=== PATIENT | female | born 1955 | race Hispanic/Latino ===

== ENCOUNTER 2022-04-08 06:16 | Day surgery (SDC) | payer BC, OTHER ==
[2022-04-05 11:52] LABS: Absolute Lymphocytes (CBC) 2.3 K/uL (0.7-4.9); Hematocrit 39.5 % (36.0-45.0); Lymphocytes % 23.5 % (15.3-44.8); MCV 89.1 fL (80-100); MPV 8.3 fL (7.6-11.3); RBC Red Blood Cell Count 4.43 M/uL (3.86-4.86)
[2022-04-05 12:08] LABS: Potassium 3.8 mmol/L (3.5-5.1)
--- NOTE | 2022-04-05 12:09 | RAD REPORT ---
EXAM DESCRIPTION: RAD - Chest Pa And Lat (2 Views) - 04/05/2022 11:39 am CLINICAL HISTORY: Pre op pending rotator cuff repair COMPARISON: Portable 01/01/2016 TECHNIQUE: Frontal and lateral views of the chest were obtained. FINDINGS: The lungs are clear. Interstitial pattern matches comparison. Numerous surgical clips are seen in the right axilla and along the lateral aspect of the chest the prior breast surgery. Heart size is normal and central vasculature is within normal limits. No pleural effusion or pneumo thorax seen. No acute bony finding noted. No aortic abnormality. IMPRESSION: No acute cardiopulmonary process.
--- NOTE | 2022-04-05 13:54 | EKG ---
Test Date: 2022-04-05 Test Time: 11:11:46 [employer]: LIANG MEASUREMENT RESULTS: Intervals: Rate: 76 TX: 140 QRSD: 88 QT: 378 QTc: 425 [place]: P: 67 TX: 140 QRS: -26 T: 65 INTERPRETIVE STATEMENTS: Normal sinus rhythm Normal ECG Compared to ECG 01/01/2016 11:27:24 No significant changes Electronically Signed On 04-05-22 13:54:21 CDT by Sergo Gomez
[2022-04-08] MEDS ORDERED: CEFAZOLIN SODIUM 1 GM/VIAL ONE (06:23)
[2022-04-08] MEDS ORDERED: NA CHLORIDE 0.9% 1,000 ML ONE ×2 (06:23→09:18)
[2022-04-08] MEDS ORDERED: EPINEPHRINE/PF 1 MG/ML AMP ONE ×2 (07:09→07:13)
[2022-04-08] MEDS ORDERED: dexAMETHasone 10 MG/ML VIAL ONE (07:11)
[2022-04-08] MEDS ORDERED: MIDAZOLAM HCL 2 MG/2 ML INJ ONE (07:11)
[2022-04-08] MEDS ORDERED: FENTANYL CITR 100 MCG/2 ML ONE (07:11)
[2022-04-08] MEDS ORDERED: LIDOCAINE 1% MPF 5 ML VIAL ONE (07:11)
[2022-04-08] MEDS ORDERED: ROPLVACAINE HCL 40 ML ONE (07:12)
[2022-04-08] MEDS ORDERED: KETOROLAC 30 MG/ML INJ ONE (07:55)
[2022-04-08] MEDS ORDERED: ROCURONIUM 50 MG/5 ML VIAL IV ONE (07:55)
[2022-04-08] MEDS ORDERED: ONDANSETRON 4 MG/2 ML VIAL ONE (07:55)
[2022-04-08] MEDS ORDERED: propofoL 200 MG/20 ML VIAL IV ONE (07:55)
[2022-04-08] MEDS ORDERED: LIDOCAINE 2% MPF 5 ML VIAL ONE (07:55)
[2022-04-08] MEDS ORDERED: GLYCOPYRROLATE 0.2 MG/ML SYR ONE (10:21)
[2022-04-08] MEDS ORDERED: NEOSTIGMINE 1 MG/ML -5 ML ONE (10:24)
--- NOTE | 2022-04-08 10:54 | P.BOP ---
Preoperative diagnosis: left rotator cuff tear, biceps tendinitis, impingement syndrome Postoperative diagnosis: same, SLAP tear Primary procedure: left shoulder arthroscopic rotator cuff repair Secondary procedure: left shoulder arthroscopic biceps tenotomy with SLAP debridement Other procedure(s): left shoulder arthroscopic subacromial decompression Estimated blood loss: 5 cc Specimen: none Findings: see dictation Anesthesia: General Complications: None Implants: 1- 5.5 mm Arthex corkscrew, 2- 4.75 mm Arthrex Swivelocks Fluids & blood products: per anesthesia record Transferred to: Recovery Room Condition: Good
--- NOTE | 2022-04-08 11:26 | RAD REPORT ---
EXAM DESCRIPTION: RAD - Shoulder 1 View - 04/08/2022 11:11 am CLINICAL HISTORY: shoulder surgery FINDINGS: Frontal view of the shoulder was obtained. Postsurgical changes involve the right shoulder. Air is present within the tissues. No fracture visualized.
[2022-04-08] MEDS ORDERED: HYDROCODONE/APAP 7.5/325 MG TAB ONE (12:19)
[2022-04-08 14:38] VITALS: BP 136/71; TEMP 96.5; O2SAT 100
== END 2022-04-08 12:32 | disposition home or self-care (01) ==
LOC: OR 06:16
PROVIDERS: ATTEND Orthopaedic Surgery Sports Medicine
PROC: 0LM24ZZ Reattachment of Left Shoulder Tendon, Percutaneous Endoscopic Approach (ICD-10-PCS; 2022-04-08)
PROC: 0RNK4ZZ Release Left Shoulder Joint, Percutaneous Endoscopic Approach (ICD-10-PCS; principal; 2022-04-08 08:00)
DX: M75.102 Unspecified rotator cuff tear or rupture of left shoulder, not specified as traumatic (principal); M75.22 Bicipital tendinitis, left shoulder; M75.42 Impingement syndrome of left shoulder; E11.9 Type 2 diabetes mellitus without complications; I10 Essential (primary) hypertension
CPT/HCPCS: 93005; 85025; 80048; 36415; 85610; 82947 ×2; 85730; 71046; 73020; 29827; 29826; 29822; J2704; J0171 ×2; J2001 ×2; J2250; J3010; J1100; J2795; J2710; J7030 ×2; J2405; J0690

== ENCOUNTER 2023-05-15 16:21 | Emergency (ER) | payer BC, OTHER ==
--- OUTSIDE RECORDS SUMMARY | 2023-05-15 16:27 | XMS REPORT | Continuity of Care Document ---
:1955 Author Organization [facility] t Address [address] [place] [address]. [address] [place] [address] Care Team Providers Name Role Phone KENNA BURNS Primary Care Physician Unavailable Sarika Keyes Attending Clinician Unavailable Kenna Burns Attending Clinician Unavailable [email or web address] Attending Clinician Unavailable DONA Attending Clinician Unavailable ARIAN HYATT Attending Clinician Unavailable Arian Cox Attending Clinician Froylan Melissa MD Attending Clinician FROYLAN MELISSA Attending Clinician Unavailable Jordy Nava DO Attending Clinician Doctor Unassigned, [place] Attending Clinician Unavailable EVA BOWENS Attending Clinician Unavailable [email or web address] Admitting Clinician Unavailable DONA Admitting Clinician Unavailable ARIAN HYATT Admitting Clinician Unavailable Payers Payer Name Policy Type Policy Number Effective Date Expiration Date S ource HUMANA MEDICARE 53 [id number] 2020 Common Sp mark 00:00:[address] - [facility] Cross Blue 6 [id number] 2020 Common Spirit Shield of [place] 00:00:00 - [facility] HUMANA MEDICARE C1 [id number] Common Sp mark - [facility] [place] [id number] 2020 00:00:00 HUMANA CHOICE [id number] 2020 00:00:00 Problems Condition Condition Condition Status Onset Resolution Last Treating Co mments Source Name Details Category Date Date Treatment Clinician Date [id number] Tear of Problem Commo n left [facility], [facility] Center unspecif d whether traumatic [id number] Primary Problem Comm on osteoarthr Spirit itis of - CHI left hip [facility] [id number] Primary Problem Comm on osteoarthr Spirit itis of - CHI left knee [facility] [id number] Other Problem Common specified Spirit diabetes - CHI mellitus [facility] diabetic Medical polyneurop Center athy, without long-term current use of insulin [id number] Current Problem Common moderate Spirit episode of - [facility]I major [facility] disorder Medical without Center prior episode [id number] Asymptomat Problem 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 [facility] extremitie Medica l s Center [id number] Pure Problem Common hyperchole Spirit sterolemia - [facility] [id number] Gastroesop Problem Co mmon hageal Spirit reflux - CHI disease [facility] esophagiti Medica l [facility] [id number] Mixed Problem Common stress and Spirit urge - CHI urinary [facility] Personal History of Problem Com mon history of breast Spirit primary cancer - CHI malignant neoplasm [facility] breast [facility] [id number] Essential Problem Comm on (primary) Spirit hypertensi - CHI on [facility] [id number] Other Problem Common insomnia Spirit - [facility] [id number] Primary Problem Commo n osteoarthr Spirit itis - CHI involving [facility] Abnormal Abnormal Problem Commo n mammogram mammogram Spir it - [facility] [id number] Age-relate Problem Com mon d Spirit osteoporos - CHI is without [facility] pathologic Medica l al Center fracture [id number] Gastroesop Problem Co mmon hageal Spirit reflux - CHI disease St with [facility] esophagiti Medica l s without Center hemorrhage [id number] Arthralgia Problem Com mon of right Spirit knee - [facility] [id number] Internal Problem Com mon [id number] derangemen Spiri t t of right - CHI knee [facility] [id number] Other Problem Common chronic Spirit pain - [facility] [id number] MDD (major Problem Co mmon depressive Spirit disorder), - CHI recurrent St episode, [facility] [id number] Urge Problem Common incontinen Spirit ce - [facility] [id number] Type 2 Problem Common diabetes Spirit mellitus - CHI without St complicati [facility] on, Medical without Center long-term current use of insulin Allergies, Adverse Reactions, Alerts Allergy Allergy Status Severity Reaction(s) Onset Inactive Treating Comm ents Source Name Type Date Date Clinician NO KNOWN Drug Active Univers ALLERGIE Class ity of S [facility] Social History Social Habit Start Date Stop Date Quantity Comments Source History of Tobacco Common Spirit - Use [facility] Sexual orientation Method ist Hospital Exposure to Not sure University of SARS-CoV-2 (event) [facility] Alcohol intake 2021-04-14 2021-04-14 Current University of 00:00:00 00:00:00 non-drinker of [facility] alcohol Branch (finding) Cigarettes smoked 2017-10-27 2017-10-27 Univers ity of current (pack per 00:00:00 00:00:00 ) - Reported Branch Tobacco use and 2017-10-27 2017-10-27 Never used Universit y of exposure 00:00:00 00:00:00 [facility] Sex Ass[birth year] [facility] Smoking Status Start Date Stop Date Source Tobacco smoking [facility] consumption unknown Former Smoker 2022-11-29 00:00:00 2022-11-29 Common Spiri t [facility] 00[facility]00:00 [facility] nter Current Smoker 2022-05-30 00:00:00 Common Spiri t - [facility] nter Medications Ordered Filled Start Stop Current Ordering Indication Dosage Frequency Signature Comments Components Source Medication Medication Date Date Medication? Clinician (SIG) Name Name HYDROcodone HYDROcodone 2021-06 No 1{table QID HYDROcodon -Acetaminop -Acetaminop 1-14 t_as_ne e-Acetamin hen 5-325 hen 5-325 00:00: eded} ophen MG MG 00 5-325 MG HYDROcodone HYDROcodone 2021-06 No 1{table QID HYDROcodon -Acetaminop -Acetaminop 1-14 t_as_ne e-Acetamin hen 5-325 hen 5-325 00:00: eded} ophen MG MG 00 5-325 MG HYDROcodone HYDROcodone 2021-06 No 1{table QID HYDROcodon -Acetaminop -Acetaminop 1-14 t_as_ne e-Acetamin hen 5-325 hen 5-325 00:00: eded} ophen MG MG 00 5-325 MG HYDROcodone HYDROcodone 2021-06 No 1{table QID HYDROcodon -Acetaminop -Acetaminop 1-14 t_as_ne e-Acetamin hen 5-325 hen 5-325 00:00: eded} ophen MG MG 00 5-325 MG HYDROcodone HYDROcodone 2021-06 No 1{table QID HYDROcodon -Acetaminop -Acetaminop 1-14 t_as_ne e-Acetamin hen 5-325 hen 5-325 00:00: eded} ophen MG MG 00 5-325 MG HYDROcodone HYDROcodone 2021-06 No 1{table QID HYDROcodon -Acetaminop -Acetaminop 1-14 t_as_ne e-Acetamin hen 5-325 hen 5-325 00:00: eded} ophen MG MG 00 5-325 MG HYDROcodone HYDROcodone 2021-06 No 1{table QID HYDROcodon -Acetaminop -Acetaminop 1-14 t_as_ne e-Acetamin hen 5-325 hen 5-325 00:00: eded} ophen MG MG 00 5-325 MG HYDROcodone HYDROcodone 2021-06 No 1{table HYDROcodon -Acetaminop -Acetaminop 0-27 t_as_ne e-Acetamin hen 7.5-325 hen 7.5-325 00:00: eded} ophen MG MG 00 7.5-325 MG HYDROcodone HYDROcodone 2021-06 No 1{table HYDROcodon -Acetaminop -Acetaminop 0-27 t_as_ne e-Acetamin hen 7.5-325 hen 7.5-325 00:00: eded} ophen MG MG 00 7.5-325 MG HYDROcodone HYDROcodone 2021-06 No 1{table HYDROcodon -Acetaminop -Acetaminop 0-27 t_as_ne e-Acetamin hen 7.5-325 hen 7.5-325 00:00: eded} ophen MG MG 00 7.5-325 MG HYDROcodone HYDROcodone 2021-06 No 1{table HYDROcodon -Acetaminop -Acetaminop 0-27 t_as_ne e-Acetamin hen 7.5-325 hen 7.5-325 00:00: eded} ophen MG MG 00 7.5-325 MG HYDROcodone HYDROcodone 2021-06 No 1{table HYDROcodon -Acetaminop -Acetaminop 0-27 t_as_ne e-Acetamin hen 7.5-325 hen 7.5-325 00:00: eded} ophen MG MG 00 7.5-325 MG HYDROcodone HYDROcodone 2021-06 No 1{table HYDROcodon -Acetaminop -Acetaminop 0-27 t_as_ne e-Acetamin hen 7.5-325 hen 7.5-325 00:00: eded} ophen MG MG 00 7.5-325 MG HYDROcodone HYDROcodone 2021-06 No 1{table HYDROcodon -Acetaminop -Acetaminop 0-27 t_as_ne e-Acetamin hen 7.5-325 hen 7.5-325 00:00: eded} ophen MG MG 00 7.5-325 MG HYDROcodone HYDROcodone 2021-06 No 1{table HYDROcodon -Acetaminop -Acetaminop 0-27 t_as_ne e-Acetamin hen 7.5-325 hen 7.5-325 00:00: eded} ophen MG MG 00 7.5-325 MG HYDROcodone HYDROcodone 2021-06 No 1{table HYDROcodon -Acetaminop -Acetaminop 0-27 t_as_ne e-Acetamin hen 7.5-325 hen 7.5-325 00:00: eded} ophen MG MG 00 7.5-325 MG HYDROcodone HYDROcodone 2022-1 No 1{table HYDROcodon -Acetaminop -Acetaminop 0-27 t_as_ne e-Acetamin hen 7.5-325 hen 7.5-325 00:00: eded} ophen MG MG 00 7.5-325 MG Sertraline Sertraline 2021-0 No 1{table QD Sertraline HCl 50 MG HCl 50 MG 8-17 t} HCl 50 MG 00:00: 00 Sertraline Sertraline 2021-0 No 1{table QD Sertraline HCl 50 MG HCl 50 MG 8-17 t} HCl 50 MG 00:00: 00 Sertraline Sertraline 2021-0 No 1{table QD Sertraline HCl 50 MG HCl 50 MG 8-17 t} HCl 50 MG 00:00: 00 Sertraline Sertraline 2021-0 No 1{table QD Sertraline HCl 50 MG HCl 50 MG 8-17 t} HCl 50 MG 00:00: 00 Sertraline Sertraline 2-0 No 1{table QD Sertraline HCl 50 MG HCl 50 MG 8-17 t} HCl 50 MG 00:00: 00 Sertraline Sertraline 2-0 No 1{table QD Sertraline HCl 50 MG HCl 50 MG 8-17 t} HCl 50 MG 00:00: 00 Sertraline Sertraline 2-0 No 1{table QD Sertraline HCl 50 MG HCl 50 MG 8-17 t} HCl 50 MG 00:00: 00 Sertraline Sertraline 2-0 No 1{table QD Sertraline HCl 50 MG HCl 50 MG 8-17 t} HCl 50 MG 00:00: 00 Sertraline Sertraline 2-0 No 1{table QD Sertraline HCl 50 MG HCl 50 MG 8-17 t} HCl 50 MG 00:00: 00 Sertraline Sertraline 2-0 No 1{table QD Sertraline HCl 50 MG HCl 50 MG 8-17 t} HCl 50 MG 00:00: 00 Sertraline Sertraline 2-0 No 1{table QD Sertraline HCl 50 MG HCl 50 MG 8-17 t} HCl 50 MG 00:00: 00 Sertraline Sertraline 2-0 No 1{table QD Sertraline HCl 50 MG HCl 50 MG 8-17 t} HCl 50 MG 00:00: 00 Sertraline Sertraline 2022-0 No 1{table QD Sertraline HCl 50 MG HCl 50 MG 8-17 t} HCl 50 MG 00:00: 00 Sertraline Sertraline 2-0 No 1{table QD Sertraline HCl 50 MG HCl 50 MG 8-17 t} HCl 50 MG 00:00: 00 Sertraline Sertraline 2022-0 No 1{table QD Sertraline HCl 50 MG HCl 50 MG 8-17 t} HCl 50 MG 00:00: 00 metFORMIN metFORMIN 2022-0 No 1{table QD metFORMIN HCl 1000 MG HCl 1000 MG 5-18 t_with_ HCl 1000 00:00: a_meal} MG 00 metFORMIN metFORMIN 2022-0 No 1{table QD metFORMIN HCl 1000 MG HCl 1000 MG 5-18 t_with_ HCl 1000 00:00: a_meal} MG 00 metFORMIN metFORMIN 2-0 No 1{table QD metFORMIN HCl 1000 MG HCl 1000 MG 5-18 t_with_ HCl 1000 00:00: a_meal} MG 00 metFORMIN metFORMIN 2022-0 No 1{table QD metFORMIN HCl 1000 MG HCl 1000 MG 5-18 t_with_ HCl 1000 00:00: a_meal} MG 00 metFORMIN metFORMIN 2022-0 No 1{table QD metFORMIN HCl 1000 MG HCl 1000 MG 5-18 t_with_ HCl 1000 00:00: a_meal} MG 00 metFORMIN metFORMIN 2022-0 No 1{table QD metFORMIN HCl 1000 MG HCl 1000 MG 5-18 t_with_ HCl 1000 00:00: a_meal} MG 00 metFORMIN metFORMIN 2022-0 No 1{table QD metFORMIN HCl 1000 MG HCl 1000 MG 5-18 t_with_ HCl 1000 00:00: a_meal} MG 00 metFORMIN metFORMIN 2022-0 No 1{table QD metFORMIN HCl 1000 MG HCl 1000 MG 5-18 t_with_ HCl 1000 00:00: a_meal} MG 00 metFORMIN metFORMIN 2022-0 No 1{table QD metFORMIN HCl 1000 MG HCl 1000 MG 5-18 t_with_ HCl 1000 00:00: a_meal} MG 00 metFORMIN metFORMIN 2022-0 No 1{table QD metFORMIN HCl 1000 MG HCl 1000 MG 5-18 t_with_ HCl 1000 00:00: a_meal} MG 00 metFORMIN metFORMIN 2022-0 No 1{table QD metFORMIN HCl 1000 MG HCl 1000 MG 5-18 t_with_ HCl 1000 00:00: a_meal} MG 00 metFORMIN metFORMIN 2022-0 No 1{table QD metFORMIN HCl 1000 MG HCl 1000 MG 5-18 t_with_ HCl 1000 00:00: a_meal} MG 00 metFORMIN metFORMIN 2022-0 No 1{table QD metFORMIN HCl 1000 MG HCl 1000 MG 5-18 t_with_ HCl 1000 00:00: a_meal} MG 00 metFORMIN metFORMIN 2-0 No 1{table QD metFORMIN HCl 1000 MG HCl 1000 MG 5-18 t_with_ HCl 1000 00:00: a_meal} MG 00 metFORMIN metFORMIN 2-0 No 1{table QD metFORMIN HCl 1000 MG HCl 1000 MG 5-18 t_with_ HCl 1000 00:00: a_meal} MG 00 metFORMIN metFORMIN 2-0 No 1{table QD metFORMIN HCl 1000 MG HCl 1000 MG 5-18 t_with_ HCl 1000 00:00: a_meal} MG 00 metFORMIN metFORMIN 2-0 No 1{table QD metFORMIN HCl 1000 MG HCl 1000 MG 5-18 t_with_ HCl 1000 00:00: a_meal} MG 00 metFORMIN metFORMIN 2-0 No 1{table QD metFORMIN HCl 1000 MG HCl 1000 MG 5-18 t_with_ HCl 1000 00:00: a_meal} MG 00 metFORMIN metFORMIN 2022-0 No 1{table QD metFORMIN HCl 1000 MG HCl 1000 MG 5-18 t_with_ HCl 1000 00:00: a_meal} MG 00 metFORMIN metFORMIN 2-0 No 1{table QD metFORMIN HCl 1000 MG HCl 1000 MG 5-18 t_with_ HCl 1000 00:00: a_meal} MG 00 predniSONE predniSONE 2-0 No 2{table QD predniSONE 20 MG 20 MG 4-27 t} 20 MG 00:00: 00 Toradol Toradol 2021-0 No 30mg Common (Ketorolac) (Ketorolac) 4-27 S pirit 00:00: - CHI 00 [facility] Kenalog Kenalog 2021-0 No 40mg Common (Triamcinol (Triamcinol 4-27 S pirit one) one) 00:00: - CHI 00 [facility] Toradol Toradol 2021-0 No 30mg Common (Ketorolac) (Ketorolac) 4-27 S pirit 00:00: - CHI 00 [facility] Kenalog Kenalog 2021-0 No 40mg Common (Triamcinol (Triamcinol 4-27 S pirit one) one) 00:00: - CHI 00 [facility] Toradol Toradol 2021-0 No 30mg Common (Ketorolac) (Ketorolac) 4-27 S pirit 00:00: - CHI 00 [facility] Kenalog Kenalog 2021-0 No 40mg Common (Triamcinol (Triamcinol 4-27 S pirit one) one) 00:00: - CHI 00 [facility] Toradol Toradol 2021-0 No 30mg Common (Ketorolac) (Ketorolac) 4-27 S pirit 00:00: - CHI 00 [facility] Kenalog Kenalog 2021-0 No 40mg Common (Triamcinol (Triamcinol 4-27 S pirit one) one) 00:00: - CHI 00 [facility] Toradol Toradol 2021-0 No 30mg Common (Ketorolac) (Ketorolac) 4-27 S pirit 00:00: - CHI 00 [facility] Kenalog Kenalog 2021-0 No 40mg Common (Triamcinol (Triamcinol 4-27 S pirit one) one) 00:00: - CHI 00 [facility] Toradol Toradol 2021-0 No 30mg Common (Ketorolac) (Ketorolac) 4-27 S pirit 00:00: - [facility] Kenalog Kenalog 2021-0 No 40mg Common (Triamcinol (Triamcinol 4-27 S pirit one) one) 00:00: - CHI 00 [facility] Toradol Toradol 2021-0 No 30mg Common (Ketorolac) (Ketorolac) 4-27 S pirit 00:00: - CHI 00 [facility] Kenalog Kenalog 2021-0 No 40mg Common (Triamcinol (Triamcinol 4-27 S pirit one) one) 00:00: - [facility] Toradol Toradol 2021-0 No 30mg Common (Ketorolac) (Ketorolac) 4-27 S pirit 00:00: - CHI 00 [facility] Kenalog Kenalog 2021-0 No 40mg Common (Triamcinol (Triamcinol 4-27 S pirit one) one) 00:00: - CHI 00 [facility] Toradol Toradol 2021-0 No 30mg Common (Ketorolac) (Ketorolac) 4-27 S pirit 00:00: - CHI 00 [facility] Kenalog Kenalog 2021-0 No 40mg Common (Triamcinol (Triamcinol 4-27 S pirit one) one) 00:00: - CHI 00 [facility] Toradol Toradol 2021-0 No 30mg Common (Ketorolac) (Ketorolac) 4-27 S pirit 00:00: - CHI 00 [facility] Johanna Kenalog 2021-0 No 40mg Common (Triamcinol (Triamcinol 4-27 S pirit one) one) 00:00: - CHI 00 [facility] Toradol Toradol 2021-0 No 30mg Common (Ketorolac) (Ketorolac) 4-27 S pirit 00:00: - CHI 00 [facility] Kencody Kenalog 2021-0 No 40mg Common (Triamcinol (Triamcinol 4-27 S pirit one) one) 00:00: - CHI 00 [facility] Toradol Toradol 2021-0 No 30mg Common (Ketorolac) (Ketorolac) 4-27 S pirit 00:00: - CHI 00 [facility] Kenalog Kenalog 2021-0 No 40mg Common (Triamcinol (Triamcinol 4-27 S pirit one) one) 00:00: - CHI 00 [facility] Toradol Toradol 2021-0 No 30mg Common (Ketorolac) (Ketorolac) 4-27 S pirit 00:00: - CHI 00 [facility] Kenalog Kenalog 2021-0 No 40mg Common (Triamcinol (Triamcinol 4-27 S pirit one) one) 00:00: - CHI 00 [facility] Toradol Toradol 2021-0 No 30mg Common (Ketorolac) (Ketorolac) 4-27 S pirit 00:00: - CHI 00 [facility] Kenalog Kenalog 2021-0 No 40mg Common (Triamcinol (Triamcinol 4-27 S pirit one) one) 00:00: - CHI 00 [facility] Toradol Toradol 2021-0 No 30mg Common (Ketorolac) (Ketorolac) 4-27 S pirit 00:00: - CHI 00 [facility] Kenalog Kenalog 2021-0 No 40mg Common (Triamcinol (Triamcinol 4-27 S pirit one) one) 00:00: - CHI 00 [facility] Toradol Toradol 2021-0 No 30mg Common (Ketorolac) (Ketorolac) 4-27 S pirit 00:00: - CHI 00 [facility] Johanna Kenalog 2021-0 No 40mg Common (Triamcinol (Triamcinol 4-27 S pirit one) one) 00:00: - CHI 00 [facility] Toradol Toradol 2021-0 No 30mg Common (Ketorolac) (Ketorolac) 4-27 S pirit 00:00: - CHI 00 [facility] Kenalog Kenalog 2021-0 No 40mg Common (Triamcinol (Triamcinol 4-27 S pirit one) one) 00:00: - CHI 00 [facility] Toradol Toradol 2021-0 No 30mg Common (Ketorolac) (Ketorolac) 4-27 S pirit 00:00: - CHI 00 [facility] Kenalog Kenalog 2021-0 No 40mg Common (Triamcinol (Triamcinol 4-27 S pirit one) one) 00:00: - CHI 00 [facility] Toradol Toradol 2021-0 No 30mg Common (Ketorolac) (Ketorolac) 4-27 S pirit 00:00: - CHI 00 [facility] Kenalog Kenalog 2021-0 No 40mg Common (Triamcinol (Triamcinol 4-27 S pirit one) one) 00:00: - CHI 00 [facility] Toradol Toradol 2021-0 No 30mg Common (Ketorolac) (Ketorolac) 4-27 S pirit 00:00: - CHI 00 [facility] Kenalog Kenalog 2021-0 No 40mg Common (Triamcinol (Triamcinol 4-27 S pirit one) one) 00:00: - CHI 00 [facility] Toradol Toradol 2021-0 No 30mg Common (Ketorolac) (Ketorolac) 4-27 S pirit 00:00: - CHI 00 [facility] Kenalog Kenalog 2021-0 No 40mg Common (Triamcinol (Triamcinol 4-27 S pirit one) one) 00:00: - CHI 00 [facility] Toradol Toradol 2021-0 No 30mg Common (Ketorolac) (Ketorolac) 4-27 S pirit 00:00: - CHI 00 [facility] Johanna Kenalog 2021-0 No 40mg Common (Triamcinol (Triamcinol 4-27 S pirit one) one) 00:00: - CHI 00 [facility] Toradol Toradol 2021-0 No 30mg Common (Ketorolac) (Ketorolac) 4-27 S pirit 00:00: - CHI 00 [facility] Johanna Kenalog 2021-0 No 40mg Common (Triamcinol (Triamcinol 4-27 S pirit one) one) 00:00: - CHI 00 [facility] Toradol Toradol 2021-0 No 30mg Common (Ketorolac) (Ketorolac) 4-27 S pirit 00:00: - CHI 00 [facility] Kenalog Kenalog 2021-0 No 40mg Common (Triamcinol (Triamcinol 4-27 S pirit one) one) 00:00: - CHI 00 [facility] Toradol Toradol 2021-0 No 30mg Common (Ketorolac) (Ketorolac) 4-27 S pirit 00:00: - CHI 00 [facility] Kenalog Kenalog 2021-0 No 40mg Common (Triamcinol (Triamcinol 4-27 S pirit one) one) 00:00: - CHI 00 [facility] Toradol Toradol 2021-0 No 30mg Common (Ketorolac) (Ketorolac) 4-27 S pirit 00:00: - CHI 00 [facility] Kenalog Kenalog 2021-0 No 40mg Common (Triamcinol (Triamcinol 4-27 S pirit one) one) 00:00: - CHI 00 [facility] Toradol Toradol 2021-0 No 30mg Common (Ketorolac) (Ketorolac) 4-27 S pirit 00:00: - CHI 00 [facility] Kenalog Kenalog 2021-0 No 40mg Common (Triamcinol (Triamcinol 4-27 S pirit one) one) 00:00: - CHI 00 [facility] Toradol Toradol 2021-0 No 30mg Common (Ketorolac) (Ketorolac) 4-27 S pirit 00:00: - CHI 00 [facility] Alexisalog Kenalog 2021-0 No 40mg Common (Triamcinol (Triamcinol 4-27 S pirit one) one) 00:00: - CHI 00 [facility] Sertraline Sertraline 0 No 1{table QD Sertraline HCl 50 MG HCl 50 MG 2-11 t} HCl 50 MG 00:00: 00 Sertraline Sertraline 0 No 1{table QD Sertraline HCl 50 MG HCl 50 MG 2-11 t} HCl 50 MG 00:00: 00 Myrbetriq Myrbetriq 2020-06- No 1{table QD Myrbetriq 25 MG 25 MG 2-21 01-20 t} 25 MG 00:00: 00:00 00 :00 hydroCHLORO 2020-06- No 12.5mg Take 12.5 Univers thiazide 06-14 mg by ity of 12.5 mg 12:03: 00:00 mouth [place] capsule 46 :00 daily. Medical Branch lisinopril 2020-06- No 20mg Take 20 mg Univers 20 mg 06-14 by mouth ity of tablet 12:03: 00:00 daily. [place] 46 :00 [facility] Branch SERTraline 2020-06- No 50mg Take 50 mg Univers 50 mg 06-14 by mouth ity of tablet 12:03: 00:00 daily. [place] 46 :00 Medical Branch letrozole 2020-06- No 2.5mg Take 2.5 Un jam 2.5 mg 06-14 mg by ity of tablet 12:03: 00:00 mouth [place] 46 :00 daily. Medical Branch anastrozole 2020-06- No 1mg Take 1 mg Univers 1 mg tablet 06-14 by mouth ity of 12:03: 00:00 daily. [place] 46 :00 Medical Branch gabapentin 2020-06- No 600mg Take 600 U nivers 600 mg 06-14 mg by ity of tablet 12:03: 00:00 mouth 3 [place] 46 :00 (three) Medical times Branch daily. acetaminoph 2020-06 Yes [id number] 1{tbl} Take 1 Un jam en-codeine 06-14 tablet by ity of 300-30 mg 00:00: mouth [place] tablet 00 every 4 Medical (four) Branch hours as needed for Pain (scale 4-6). Indication s: acute pain lidocaine 5 2020-06 Yes [id number] Apply Univers % (700 06-14 9104 patch to ity of mg/patch) 00:00: the [place] patch 00 affected Medical area for Branch up to 12 hours per day. May use 1 patch per day. May cut patch to size lidocaine 5 2020-06- No [id number] Apply Univers % (700 06-14 9104 patch to ity of mg/patch) 00:00: 00:00 the area [place] patch 00 :00 of pain Medical and use Branch for up to 12 hours per day. May cut patch to size. acetaminoph 2020-06- No [id number] 1{tbl} Take 1 U nivers en-codeine 06-14 tablet by ity of 300-30 mg 00:00: 00:00 mouth [place] tablet 00 :00 every 4 Medical (four) Branch hours as needed for Pain (scale 4-6). Indication s: acute pain diclofenac 2020-0 Yes 75mg Take 1 Unive rs 75 mg EC 2-04 tablet by ity of tablet 00:00: mouth 2 [place] 00 (two) Medical times Branch daily with meals. diclofenac 2020-0 Yes 75mg Take 1 Unive rs 75 mg EC 2-04 tablet by ity of tablet 00:00: mouth 2 [place] (two) Medical times Branch daily with meals. diclofenac 2020-0 Yes 75mg Take 1 Unive rs 75 mg EC 2-04 tablet by ity of tablet 00:00: mouth 2 [place] (two) Medical times Branch daily with meals. diclofenac 2021-0 Yes 75mg Take 1 Unive rs 75 mg EC 2-04 tablet by ity of tablet 00:00: mouth 2 [place] (two) Medical times Branch daily with meals. diclofenac 1-0 Yes 75mg Take 1 Unive rs 75 mg EC 2-04 tablet by ity of tablet 00:00: mouth 2 [place] (two) Medical times Branch daily with meals. diclofenac 2020-0 Yes 75mg Take 1 Unive rs 75 mg EC 2-04 tablet by ity of tablet 00:00: mouth [place] (two) Medical times Branch daily with meals. diclofenac 2020-0 Yes 75mg Take 1 Unive rs 75 mg EC 2-04 tablet by ity of tablet 00:00: mouth [place] (two) Medical times Branch daily with meals. diclofenac 2020-0 Yes 75mg Take 1 Unive rs 75 mg EC 2-04 tablet by ity of tablet 00:00: mouth [place] (two) Medical times Branch daily with meals. diclofenac 2020-0 202- No 75mg Take 1 Univ ers 75 mg EC 2-04 11-03 tablet by ity o f tablet 00:00: 00:00 mouth 2 [place] 00 :00 (two) Medical times Branch daily with meals. Omeprazole Omeprazole 2019-06 No QD Omeprazole 40 MG 40 MG 2-17 40 MG 00:00: 00 Omeprazole Omeprazole 2019-06 No QD Omeprazole 40 MG 40 MG 2-17 40 MG 00:00: 00 anastrozole 2017- Yes 1mg Take 1 mg U nivers 1 mg tablet 8-24 by mouth ity of 15:50: daily. [place] [address] Medical Branch gabapentin 2017-0 Yes 600mg Take 600 Un jam 600 mg 8-24 mg by ity of tablet 15:50: mouth 3 [place] 50 (three) Medical times Branch daily. ranitidine 2017-0 Yes 150mg Take 150 Un jam 150 mg 8-24 mg by ity of tablet 15:50: mouth 2 [place] [address] (two) Medical times Branch daily. aspirin 81 2018-0 Yes 81mg Take 81 mg U nivers mg chewable 8-24 by mouth ity of tablet 15:50: daily. [place] [address] [facility] metFORMIN 2018-0 Yes 500mg Take 500 Uni vers 500 mg 8-24 mg by ity of tablet 15:50: mouth 2 [place] [address] (two) Medical times Branch daily with meals. simvastatin 2018-0 Yes 40mg Take 40 mg [facility] 40 mg 8-24 by mouth ity of tablet 15:50: at [place] [address] bedtime. Medical Branch hydroCHLORO 2018-0 Yes 12.5mg Take 12.5 [facility] thiazide 8-24 mg by ity of 12.5 mg 15:50: mouth [place] capsule 50 daily. Medical Branch ERGOCALCIFE 2018-0 Yes Take by Uni vers ROL, 8-24 mouth. ity of VITAMIN D2, 15:50: [place] (VITAMIN D Medical ORAL) Branch Zinc 50 mg 2017-0 Yes Take by Univ ers Tab 8-24 mouth. ity of 15:50: [address] lisinopril 2017-0 Yes 20mg Take 20 mg U nivers 20 mg 8-24 by mouth ity of tablet 15:50: daily. [address] Branch SERTraline 2018-0 Yes 50mg Take 50 mg U nivers 50 mg 8-24 by mouth ity of tablet 15:50: daily. [address] Branch letrozole 2017-0 Yes 2.5mg Take 2.5 Uni vers 2.5 mg 8-24 mg by ity of tablet 15:50: mouth [place] 50 daily. Medical Branch anastrozole 2018-0 Yes 1mg Take 1 mg U nivers 1 mg tablet 8-24 by mouth ity of 15:50: daily. [address] Branch gabapentin 2018-0 Yes 600mg Take 600 Un jam 600 mg 8-24 mg by ity of tablet 15:50: mouth 3 [place] [address] (three) Medical times Branch daily. ranitidine 2018-0 Yes 150mg Take 150 Un jam 150 mg 8-24 mg by ity of tablet 15:50: mouth 2 [place] [address] (two) Medical times Branch daily. aspirin 81 2018-0 Yes 81mg Take 81 mg U nivers mg chewable 8-24 by mouth ity of tablet 15:50: daily. [address] metFORMIN 2018-0 Yes 500mg Take 500 Uni vers 500 mg 8-24 mg by ity of tablet 15:50: mouth 2 [place] [address] (two) Medical times Branch daily with meals. simvastatin 2018-0 Yes 40mg Take 40 mg [facility] 40 mg 8-24 by mouth ity of tablet 15:50: at [place] [address] bedtime. Medical Branch hydroCHLORO 2018-0 Yes 12.5mg Take 12.5 [facility] thiazide 8-24 mg by ity of 12.5 mg 15:50: mouth [place] capsule 50 daily. Medical Branch ERGOCALCIFE 2018-0 Yes Take by Uni vers ROL, 8-24 mouth. ity of VITAMIN D2, 15:50: [place] (VITAMIN D Medical ORAL) Branch Zinc 50 mg 2017-0 Yes Take by Univ ers Tab 8-24 mouth. ity of 15:50: [place] [address] Medical Branch lisinopril 2017-0 Yes 20mg Take 20 mg U nivers 20 mg 8-24 by mouth ity of tablet 15:50: daily. [place] [address] Medical Branch SERTraline 2017-0 Yes 50mg Take 50 mg U nivers 50 mg 8-24 by mouth ity of tablet 15:50: daily. [place] [address] Medical Branch letrozole 2017-0 Yes 2.5mg Take 2.5 Uni vers 2.5 mg 8-24 mg by ity of tablet 15:50: mouth [place] 50 daily. Medical Branch anastrozole 2017-0 Yes 1mg Take 1 mg U nivers 1 mg tablet 8-24 by mouth ity of 15:50: daily. [place] [address] Medical Branch gabapentin 2018-0 Yes 600mg Take 600 Un jam 600 mg 8-24 mg by ity of tablet 15:50: mouth 3 [place] [address] (three) Medical times Branch daily. ranitidine 2018-0 Yes 150mg Take 150 Un jam 150 mg 8-24 mg by ity of tablet 15:50: mouth 2 [place] [address] (two) Medical times Branch daily. aspirin 81 2018-0 Yes 81mg Take 81 mg U nivers mg chewable 8-24 by mouth ity of tablet 15:50: daily. [place] [address] Medical Branch metFORMIN 2018-0 Yes 500mg Take 500 Uni vers 500 mg 8-24 mg by ity of tablet 15:50: mouth 2 [place] [address] (two) Medical times Branch daily with meals. simvastatin 2018-0 Yes 40mg Take 40 mg [facility] 40 mg 8-24 by mouth ity of tablet 15:50: at [place] [address] bedtime. Medical Branch hydroCHLORO 2017-0 Yes 12.5mg Take 12.5 [facility] thiazide 8-24 mg by ity of 12.5 mg 15:50: mouth [place] capsule 50 daily. Medical Branch ERGOCALCIFE 2017-0 Yes Take by Uni vers ROL, 8-24 mouth. ity of VITAMIN D2, 15:50: [place] (VITAMIN D Medical ORAL) Branch Zinc 50 mg 2017-0 Yes Take by Univ ers Tab 8-24 mouth. ity of 15:50: [place] [address] Medical Branch lisinopril 2017-0 Yes 20mg Take 20 mg U nivers 20 mg 8-24 by mouth ity of tablet 15:50: daily. [place] [address] Medical Branch SERTraline 2017-0 Yes 50mg Take 50 mg U nivers 50 mg 8-24 by mouth ity of tablet 15:50: daily. [place] [address] Medical Branch letrozole 2017-0 Yes 2.5mg Take 2.5 Uni vers 2.5 mg 8-24 mg by ity of tablet 15:50: mouth [place] 50 daily. Medical Branch anastrozole 0 Yes 1mg Take 1 mg U nivers 1 mg tablet 8-24 by mouth ity of 15:50: daily. [place] [address] Medical Branch gabapentin 2017-0 Yes 600mg Take 600 Un jam 600 mg 8-24 mg by ity of tablet 15:50: mouth 3 [place] [address] (three) Medical times Branch daily. ranitidine 2017-0 Yes 150mg Take 150 Un jam 150 mg 8-24 mg by ity of tablet 15:50: mouth 2 [place] [address] (two) Medical times Branch daily. aspirin 81 2017-0 Yes 81mg Take 81 mg U nivers mg chewable 8-24 by mouth ity of tablet 15:50: daily. [place] [address] Medical Branch metFORMIN 2017-0 Yes 500mg Take 500 Uni vers 500 mg 8-24 mg by ity of tablet 15:50: mouth 2 [place] 50 (two) Medical times Branch daily with meals. simvastatin 2018-0 Yes 40mg Take 40 mg [facility] 40 mg 8-24 by mouth ity of tablet 15:50: at [place] [address] bedtime. Medical Branch hydroCHLORO 2017-0 Yes 12.5mg Take 12.5 [facility] thiazide 8-24 mg by ity of 12.5 mg 15:50: mouth [place] capsule 50 daily. Medical Branch ERGOCALCIFE 2017-0 Yes Take by Uni vers ROL, 8-24 mouth. ity of VITAMIN D2, 15:50: [place] (VITAMIN D 50 Medical ORAL) Branch Zinc 50 mg 2017-0 Yes Take by Univ ers Tab 8-24 mouth. ity of 15:50: [place] [address] Medical Branch lisinopril 2017-0 Yes 20mg Take 20 mg U nivers 20 mg 8-24 by mouth ity of tablet 15:50: daily. [address] Branch SERTraline 2017-0 Yes 50mg Take 50 mg U nivers 50 mg 8-24 by mouth ity of tablet 15:50: daily. [place] [address] Medical Branch letrozole 2017-0 Yes 2.5mg Take 2.5 Uni vers 2.5 mg 8-24 mg by ity of tablet 15:50: mouth [place] 50 daily. Medical Branch anastrozole 2017-0 Yes 1mg Take 1 mg U nivers 1 mg tablet 8-24 by mouth ity of 15:50: daily. [place] [address] Medical Branch gabapentin 2017-0 Yes 600mg Take 600 Un jam 600 mg 8-24 mg by ity of tablet 15:50: mouth 3 [place] [address] (three) Medical times Branch daily. ranitidine 0 Yes 150mg Take 150 Un jam 150 mg 8-24 mg by ity of tablet 15:50: mouth 2 [place] [address] (two) Medical times Branch daily. aspirin 81 2017-0 Yes 81mg Take 81 mg U nivers mg chewable 8-24 by mouth ity of tablet 15:50: daily. [place] [address] Medical Branch metFORMIN 2017-0 Yes 500mg Take 500 Uni vers 500 mg 8-24 mg by ity of tablet 15:50: mouth 2 [place] [address] (two) Medical times Branch daily with meals. simvastatin 2017-0 Yes 40mg Take 40 mg [facility] 40 mg 8-24 by mouth ity of tablet 15:50: at [place] [address] bedtime. Medical Branch hydroCHLORO 2018-0 Yes 12.5mg Take 12.5 [facility] thiazide 8-24 mg by ity of 12.5 mg 15:50: mouth [place] capsule 50 daily. Medical Branch ERGOCALCIFE 2017-0 Yes Take by Uni vers ROL, 8-24 mouth. ity of VITAMIN D2, 15:50: [place] (VITAMIN D 50 Medical ORAL) Branch Zinc 50 mg 2017-0 Yes Take by Univ ers Tab 8-24 mouth. ity of 15:50: [address] lisinopril 2017-0 Yes 20mg Take 20 mg U nivers 20 mg 8-24 by mouth ity of tablet 15:50: daily. [place] [address] Medical Branch SERTraline 2018-0 Yes 50mg Take 50 mg U nivers 50 mg 8-24 by mouth ity of tablet 15:50: daily. [place] [address] Medical Branch letrozole 2018-0 Yes 2.5mg Take 2.5 Uni vers 2.5 mg 8-24 mg by ity of tablet 15:50: mouth [place] 50 daily. Medical Branch anastrozole 2018-0 Yes 1mg Take 1 mg U nivers 1 mg tablet 8-24 by mouth ity of 15:50: daily. [place] [address] Medical Branch gabapentin 2018-0 Yes 600mg Take 600 Un jam 600 mg 8-24 mg by ity of tablet 15:50: mouth 3 [place] [address] (three) Medical times Branch daily. ranitidine 2018-0 Yes 150mg Take 150 Un jam 150 mg 8-24 mg by ity of tablet 15:50: mouth 2 [place] [address] (two) Medical times Branch daily. aspirin 81 2018-0 Yes 81mg Take 81 mg U nivers mg chewable 8-24 by mouth ity of tablet 15:50: daily. [place] [address] Medical Branch metFORMIN 2018-0 Yes 500mg Take 500 Uni vers 500 mg 8-24 mg by ity of tablet 15:50: mouth 2 [place] [address] (two) Medical times Branch daily with meals. simvastatin 2018-0 Yes 40mg Take 40 mg [facility] 40 mg 8-24 by mouth ity of tablet 15:50: at [place] [address] bedtime. Medical Branch hydroCHLORO 2018-0 Yes 12.5mg Take 12.5 [facility] thiazide 8-24 mg by ity of 12.5 mg 15:50: mouth [place] capsule 50 daily. Medical Branch ERGOCALCIFE 2018-0 Yes Take by Uni vers ROL, 8-24 mouth. ity of VITAMIN D2, 15:50: [place] (VITAMIN D 50 Medical ORAL) Branch Zinc 50 mg 2018-0 Yes Take by Univ ers Tab 8-24 mouth. ity of 15:50: [place] [address] Medical Branch lisinopril 2018-0 Yes 20mg Take 20 mg U nivers 20 mg 8-24 by mouth ity of tablet 15:50: daily. [address] SERTraline 2018-0 Yes 50mg Take 50 mg U nivers 50 mg 8-24 by mouth ity of tablet 15:50: daily. [address] Branch letrozole 2018-0 Yes 2.5mg Take 2.5 Uni vers 2.5 mg 8-24 mg by ity of tablet 15:50: mouth [place] 50 daily. Medical Branch anastrozole 2018-0 Yes 1mg Take 1 mg U nivers 1 mg tablet 8-24 by mouth ity of 15:50: daily. [place] [address] Medical Branch gabapentin 2018-0 Yes 600mg Take 600 Un jam 600 mg 8-24 mg by ity of tablet 15:50: mouth 3 [place] [address] (three) Medical times Branch daily. ranitidine 2018-0 Yes 150mg Take 150 Un jam 150 mg 8-24 mg by ity of tablet 15:50: mouth 2 [place] 50 (two) Medical times Branch daily. aspirin 81 2018-0 Yes 81mg Take 81 mg U nivers mg chewable 8-24 by mouth ity of tablet 15:50: daily. [address] metFORMIN 2017-0 Yes 500mg Take 500 Uni vers 500 mg 8-24 mg by ity of tablet 15:50: mouth 2 [place] [address] (two) Medical times Branch daily with meals. simvastatin 2018-0 Yes 40mg Take 40 mg [facility] 40 mg 8-24 by mouth ity of tablet 15:50: at [place] [address] bedtime. Medical Branch hydroCHLORO 2017-0 Yes 12.5mg Take 12.5 [facility] thiazide 8-24 mg by ity of 12.5 mg 15:50: mouth [place] capsule 50 daily. Medical Branch ERGOCALCIFE 2017-0 Yes Take by Uni vers ROL, 8-24 mouth. ity of VITAMIN D2, 15:50: [place] (VITAMIN D 50 Medical ORAL) Branch Zinc 50 mg 2017-0 Yes Take by Univ ers Tab 8-24 mouth. ity of 15:50: [address] lisinopril 2017-0 Yes 20mg Take 20 mg U nivers 20 mg 8-24 by mouth ity of tablet 15:50: daily. [address] Branch SERTraline 2018-0 Yes 50mg Take 50 mg U nivers 50 mg 8-24 by mouth ity of tablet 15:50: daily. [address] letrozole 2017-0 Yes 2.5mg Take 2.5 Uni vers 2.5 mg 8-24 mg by ity of tablet 15:50: mouth [place] 50 daily. Medical Branch anastrozole 2018-0 Yes 1mg Take 1 mg U nivers 1 mg tablet 8-24 by mouth ity of 15:50: daily. [place] [address] Medical Branch gabapentin 2018-0 Yes 600mg Take 600 Un jam 600 mg 8-24 mg by ity of tablet 15:50: mouth 3 [place] [address] (three) Medical times Branch daily. ranitidine 2018-0 Yes 150mg Take 150 Un jam 150 mg 8-24 mg by ity of tablet 15:50: mouth 2 [place] [address] (two) Medical times Branch daily. aspirin 81 2018-0 Yes 81mg Take 81 mg U nivers mg chewable 8-24 by mouth ity of tablet 15:50: daily. [place] [address] Medical Branch metFORMIN 2018-0 Yes 500mg Take 500 Uni vers 500 mg 8-24 mg by ity of tablet 15:50: mouth 2 [place] [address] (two) Medical times Branch daily with meals. simvastatin 2018-0 Yes 40mg Take 40 mg [facility] 40 mg 8-24 by mouth ity of tablet 15:50: at [place] [address] bedtime. Medical Branch hydroCHLORO 2018-0 Yes 12.5mg Take 12.5 [facility] thiazide 8-24 mg by ity of 12.5 mg 15:50: mouth [place] capsule 50 daily. Medical Branch ERGOCALCIFE 2018-0 Yes Take by Uni vers ROL, 8-24 mouth. ity of VITAMIN D2, 15:50: [place] (VITAMIN D Medical ORAL) Branch Zinc 50 mg 2017-0 Yes Take by Univ ers Tab 8-24 mouth. ity of 15:50: [place] [address] Medical Branch lisinopril 2018-0 Yes 20mg Take 20 mg U nivers 20 mg 8-24 by mouth ity of tablet 15:50: daily. [place] [address] Medical Branch SERTraline 2018-0 Yes 50mg Take 50 mg U nivers 50 mg 8-24 by mouth ity of tablet 15:50: daily. [place] [address] Medical Branch letrozole 2018-0 Yes 2.5mg Take 2.5 Uni vers 2.5 mg 8-24 mg by ity of tablet 15:50: mouth [place] 50 daily. Medical Branch anastrozole 2018-0 Yes 1mg Take 1 mg U nivers 1 mg tablet 8-24 by mouth ity of 15:50: daily. [place] [address] Medical Branch gabapentin 2018-0 Yes 600mg Take 600 Un jam 600 mg 8-24 mg by ity of tablet 15:50: mouth 3 [place] [address] (three) Medical times Branch daily. ranitidine 2018-0 Yes 150mg Take 150 Un jam 150 mg 8-24 mg by ity of tablet 15:50: mouth 2 [place] [address] (two) Medical times Branch daily. aspirin 81 2018-0 Yes 81mg Take 81 mg U nivers mg chewable 8-24 by mouth ity of tablet 15:50: daily. [place] [address] Medical Branch metFORMIN 2018-0 Yes 500mg Take 500 Uni vers 500 mg 8-24 mg by ity of tablet 15:50: mouth 2 [place] [address] (two) Medical times Branch daily with meals. simvastatin 2018-0 Yes 40mg Take 40 mg [facility] 40 mg 8-24 by mouth ity of tablet 15:50: at [place] [address] bedtime. Medical Branch hydroCHLORO 2018-0 Yes 12.5mg Take 12.5 [facility] thiazide 8-24 mg by ity of 12.5 mg 15:50: mouth [place] capsule 50 daily. Medical Branch ERGOCALCIFE 2018-0 Yes Take by Uni vers ROL, 8-24 mouth. ity of VITAMIN D2, 15:50: [place] (VITAMIN D Medical ORAL) Branch Zinc 50 mg 2017-0 Yes Take by Univ ers Tab 8-24 mouth. ity of 15:50: [place] [address] Medical Branch lisinopril 2017-0 Yes 20mg Take 20 mg U nivers 20 mg 8-24 by mouth ity of tablet 15:50: daily. [place] [address] Medical Branch SERTraline 2018-0 Yes 50mg Take 50 mg U nivers 50 mg 8-24 by mouth ity of tablet 15:50: daily. [place] [address] Medical Branch letrozole 2018-0 Yes 2.5mg Take 2.5 Uni vers 2.5 mg 8-24 mg by ity of tablet 15:50: mouth [place] 50 daily. Medical Branch anastrozole 2018-0 Yes 1mg Take 1 mg U nivers 1 mg tablet 8-24 by mouth ity of 15:50: daily. [place] [address] Medical Branch gabapentin 2018-0 Yes 600mg Take 600 Un jam 600 mg 8-24 mg by ity of tablet 15:50: mouth 3 [place] [address] (three) Medical times Branch daily. ranitidine 2018-0 Yes 150mg Take 150 Un jam 150 mg 8-24 mg by ity of tablet 15:50: mouth 2 [place] [address] (two) Medical times Branch daily. aspirin 81 2018-0 Yes 81mg Take 81 mg U nivers mg chewable 8-24 by mouth ity of tablet 15:50: daily. [place] [address] Medical Branch metFORMIN 2018-0 Yes 500mg Take 500 Uni vers 500 mg 8-24 mg by ity of tablet 15:50: mouth 2 [place] [address] (two) Medical times Branch daily with meals. simvastatin 2018-0 Yes 40mg Take 40 mg [facility] 40 mg 8-24 by mouth ity of tablet 15:50: at [place] [address] bedtime. Medical Branch hydroCHLORO 2018-0 Yes 12.5mg Take 12.5 [facility] thiazide 8-24 mg by ity of 12.5 mg 15:50: mouth [place] capsule 50 daily. Medical Branch ERGOCALCIFE 2017-0 Yes Take by Uni vers ROL, 8-24 mouth. ity of VITAMIN D2, 15:50: [place] (VITAMIN D 50 Medical ORAL) Branch Zinc 50 mg 0 Yes Take by Univ ers Tab 8-24 mouth. ity of 15:50: [address] Branch lisinopril 2017-0 Yes 20mg Take 20 mg U nivers 20 mg 8-24 by mouth ity of tablet 15:50: daily. [address] Branch SERTraline 2017-0 Yes 50mg Take 50 mg U nivers 50 mg 8-24 by mouth ity of tablet 15:50: daily. [place] [address] Medical Branch letrozole 2017-0 Yes 2.5mg Take 2.5 Uni vers 2.5 mg 8-24 mg by ity of tablet 15:50: mouth [place] 50 daily. Medical Branch ranitidine 2017-0 Yes 150mg Take 150 Un jam 150 mg 8-24 mg by ity of tablet 10:50: mouth 2 [place] [address] (two) Medical times Branch daily. aspirin 81 2017-0 Yes 81mg Take 81 mg U nivers mg chewable 8-24 by mouth ity of tablet 10:50: daily. [place] [address] Medical Branch metFORMIN 2018-0 Yes 500mg Take 500 Uni vers 500 mg 8-24 mg by ity of tablet 10:50: mouth 2 [place] [address] (two) Medical times Branch daily with meals. simvastatin 2017-0 Yes 40mg Take 40 mg [facility] 40 mg 8-24 by mouth ity of tablet 10:50: at [place] [address] bedtime. Medical Branch ERGOCALCIFE 2017-0 Yes Take by Uni vers ROL, 8-24 mouth. ity of VITAMIN D2, 10:50: [place] (VITAMIN D 50 Medical ORAL) Branch Zinc 50 mg 2017- Yes Take by [facility] [place] ers Tab 8-24 mouth. ity of 10:50: [place] 50 Medical Branch acetaminoph 2016- Yes 1{tbl} Take 1 Un jam en-codeine 2-16 tablet by ity of (TYLENOL-CO 00:00: mouth [place] DEINE #3) 00 every 6 Medical 300-30 mg (six) Branch tablet hours as needed for Pain (scale 4-6) (for cough). acetaminoph Yes 1{tbl} Take 1 Un jam en-codeine 2-16 tablet by ity of (TYLENOL-CO 00:00: mouth [place] DEINE #3) 00 every 6 Medical 300-30 mg (six) Branch tablet hours as needed for Pain (scale 4-6) (for cough). acetaminoph Yes 1{tbl} Take 1 Un jam en-codeine 2-16 tablet by ity of (TYLENOL-CO 00:00: mouth [place] DEINE #3) 00 every 6 Medical 300-30 mg (six) Branch tablet hours as needed for Pain (scale 4-6) (for cough). acetaminoph Yes 1{tbl} Take 1 Un jam en-codeine 2-16 tablet by ity of (TYLENOL-CO 00:00: mouth [place] DEINE #3) 00 every 6 Medical 300-30 mg (six) Branch tablet hours as needed for Pain (scale 4-6) (for cough). acetaminoph Yes 1{tbl} Take 1 Un jam en-codeine 2-16 tablet by ity of (TYLENOL-CO 00:00: mouth [place] DEINE #3) 00 every 6 Medical 300-30 mg (six) Branch tablet hours as needed for Pain (scale 4-6) (for cough). acetaminoph Yes 1{tbl} Take 1 Un jam en-codeine 2-16 tablet by ity of (TYLENOL-CO 00:00: mouth [place] DEINE #3) 00 every 6 Medical 300-30 mg (six) Branch tablet hours as needed for Pain (scale 4-6) (for cough). acetaminoph 0 Yes 1{tbl} Take 1 Un jam en-codeine 2-16 tablet by ity of (TYLENOL-CO 00:00: mouth [place] DEINE #3) 00 every 6 Medical 300-30 mg (six) Branch tablet hours as needed for Pain (scale 4-6) (for cough). acetaminoph Yes 1{tbl} Take 1 Un jam en-codeine 2-16 tablet by ity of (TYLENOL-CO 00:00: mouth [place] DEINE #3) 00 every 6 Medical 300-30 mg (six) Branch tablet hours as needed for Pain (scale 4-6) (for cough). acetaminoph Yes 1{tbl} Take 1 Un jam en-codeine 2-16 tablet by ity of (TYLENOL-CO 00:00: mouth [place] DEINE #3) 00 every 6 Medical 300-30 mg (six) Branch tablet hours as needed for Pain (scale 4-6) (for cough). acetaminoph Yes 1{tbl} Take 1 Un jam en-codeine 2-16 tablet by ity of (TYLENOL-CO 00:00: mouth [place] DEINE #3) 00 every 6 Medical 300-30 mg (six) Branch tablet hours as needed for Pain (scale 4-6) (for cough). acetaminoph 2020- No 1{tbl} Take 1 U nivers en-codeine 2-16 - tablet by ity of (TYLENOL-CO 00:00: 00:[place] DEINE #3) 00 :00 every 6 Medical 300-30 mg (six) Branch tablet hours as needed for Pain (scale 4-6) (for cough). Prilosec Prilosec Yes [place] 1 capsule C ommon [place] [facility] Gabapentin Gabapentin Yes [place] 1 tablet Common [place] [facility] Simvastatin Simvastatin Yes [place] 1 tablet Common [place] [facility] Metformin Metformin Yes [place] 1 tablet Common HCl HCl [place] [facility] meal [facility] Anastrozole Anastrozole Yes [place] 1 tablet Common [place] [facility] Lisinopril- Lisinopril- Yes [place] 1 tablet Common Hydrochloro Hydrochloro [place] [facility] thiazide thiazide - [facility] Ranitidine Ranitidine Yes [place] 1 tab C ommon HCl HCl [facility] Calcium Calcium Yes [place] 1 tablet Comm on [place] with meals [facility] Aspirin Aspirin Yes [place] 1 tablet Comm on [place] [facility] Zinc Zinc Yes [place] 1 tablet Common [place] [facility] metFORMIN metFORMIN No 1{table BID metFORMIN HCl 500 MG HCl 500 MG t_with_ HCl 500 MG a_meal} Simvastatin Simvastatin No 1{table QD Simvastati 40 MG 40 MG t_in_th n 40 MG e_eveni ng} Aspirin 81 Aspirin 81 No 1{table QD Aspirin 81 MG MG t} MG Simvastatin Simvastatin No 1{table QD Simvastati 40 MG 40 MG t_in_th n 40 MG e_eveni ng} Zinc 50 MG Zinc 50 MG No 1{table QD Zinc 50 MG t} Myrbetriq Myrbetriq No Myrbetriq 25 MG 25 MG 25 MG Calcium 600 Calcium 600 No 1{table BID Calcium MG MG t_with_ 600 MG meals} Lisinopril- Lisinopril- No 1{table QD Lisinopril hydroCHLORO hydroCHLORO t} -hydroCHLO thiazide thiazide ROthiazide 20-12.5 MG 20-12.5 MG 20-12.5 MG Omeprazole Omeprazole No QD Omeprazole 40 MG 40 MG 40 MG metFORMIN metFORMIN No 1{table BID metFORMIN HCl 500 MG HCl 500 MG t_with_ HCl 500 MG a_meal} PriLOSEC 40 PriLOSEC 40 No 1{capsu QD PriLOSEC MG MG le} 40 MG Aspirin 81 Aspirin 81 No 1{table QD Aspirin 81 MG MG t} MG Simvastatin Simvastatin No Simvastati 40 MG 40 MG n 40 MG PriLOSEC 40 PriLOSEC 40 No 1{capsu QD PriLOSEC MG MG le} 40 MG Calcium 600 Calcium 600 No 1{table BID Calcium MG MG t_with_ 600 MG meals} Zinc 50 MG Zinc 50 MG No 1{table QD Zinc 50 MG t} Myrbetriq Myrbetriq No Myrbetriq 25 MG 25 MG 25 MG Omeprazole Omeprazole No Omeprazole 40 MG 40 MG 40 MG metFORMIN metFORMIN No metFORMIN HCl 500 MG HCl 500 MG HCl 500 MG Lisinopril- Lisinopril- No Lisinopril hydroCHLORO hydroCHLORO -hydroCHLO thiazide thiazide ROthiazide 20-12.5 MG 20-12.5 MG 20-12.5 MG Aspirin 81 Aspirin 81 No 1{table QD Aspirin 81 MG MG t} MG Myrbetriq Myrbetriq No Myrbetriq 25 MG 25 MG 25 MG Aspirin 81 Aspirin 81 No 1{table QD Aspirin 81 MG MG t} MG PriLOSEC 40 PriLOSEC 40 No 1{capsu QD PriLOSEC MG MG le} 40 MG Calcium 600 Calcium 600 No 1{table BID Calcium MG MG t_with_ 600 MG meals} Lisinopril- Lisinopril- No Lisinopril hydroCHLORO hydroCHLORO -hydroCHLO thiazide thiazide ROthiazide 20-12.5 MG 20-12.5 MG 20-12.5 MG predniSONE predniSONE No 2{table QD predniSONE 20 MG 20 MG t} 20 MG Zinc 50 MG Zinc 50 MG No 1{table QD Zinc 50 MG t} Simvastatin Simvastatin No Simvastati 40 MG 40 MG n 40 MG Sertraline Sertraline No 1{table QD Sertraline HCl 100 MG HCl 100 MG t} HCl 100 MG Omeprazole Omeprazole No Omeprazole 40 MG 40 MG 40 MG Lisinopril- Lisinopril- No Lisinopril hydroCHLORO hydroCHLORO -hydroCHLO thiazide thiazide ROthiazide 20-12.5 MG 20-12.5 MG 20-12.5 MG Aspirin 81 Aspirin 81 No 1{table QD Aspirin 81 MG MG t} MG PriLOSEC 40 PriLOSEC 40 No 1{capsu QD PriLOSEC MG MG le} 40 MG Calcium 600 Calcium 600 No 1{table BID Calcium MG MG t_with_ 600 MG meals} predniSONE predniSONE No 2{table QD predniSONE 20 MG 20 MG t} 20 MG Sertraline Sertraline No 1{table QD Sertraline HCl 100 MG HCl 100 MG t} HCl 100 MG Zinc 50 MG Zinc 50 MG No 1{table QD Zinc 50 MG t} Myrbetriq Myrbetriq No Myrbetriq 25 MG 25 MG 25 MG Simvastatin Simvastatin No Simvastati 40 MG 40 MG n 40 MG Omeprazole Omeprazole No Omeprazole 40 MG 40 MG 40 MG Myrbetriq Myrbetriq No Myrbetriq 25 MG 25 MG 25 MG Omeprazole Omeprazole No Omeprazole 40 MG 40 MG 40 MG Sertraline Sertraline No 1{table QD Sertraline HCl 100 MG HCl 100 MG t} HCl 100 MG Aspirin 81 Aspirin 81 No 1{table QD Aspirin 81 MG MG t} MG Calcium 600 Calcium 600 No 1{table BID Calcium MG MG t_with_ 600 MG meals} Simvastatin Simvastatin No Simvastati 40 MG 40 MG n 40 MG predniSONE predniSONE No 2{table QD predniSONE 20 MG 20 MG t} 20 MG Lisinopril- Lisinopril- No Lisinopril hydroCHLORO hydroCHLORO -hydroCHLO thiazide thiazide ROthiazide 20-12.5 MG 20-12.5 MG 20-12.5 MG PriLOSEC 40 PriLOSEC 40 No 1{capsu QD PriLOSEC MG MG le} 40 MG Zinc 50 MG Zinc 50 MG No 1{table QD Zinc 50 MG t} Myrbetriq Myrbetriq No Myrbetriq 25 MG 25 MG 25 MG Omeprazole Omeprazole No Omeprazole 40 MG 40 MG 40 MG Sertraline Sertraline No 1{table QD Sertraline HCl 100 MG HCl 100 MG t} HCl 100 MG Aspirin 81 Aspirin 81 No 1{table QD Aspirin 81 MG MG t} MG Calcium 600 Calcium 600 No 1{table BID Calcium MG MG t_with_ 600 MG meals} Simvastatin Simvastatin No Simvastati 40 MG 40 MG n 40 MG predniSONE predniSONE No 2{table QD predniSONE 20 MG 20 MG t} 20 MG Lisinopril- Lisinopril- No Lisinopril hydroCHLORO hydroCHLORO -hydroCHLO thiazide thiazide ROthiazide 20-12.5 MG 20-12.5 MG 20-12.5 MG PriLOSEC 40 PriLOSEC 40 No 1{capsu QD PriLOSEC MG MG le} 40 MG Zinc 50 MG Zinc 50 MG No 1{table QD Zinc 50 MG t} Calcium 600 Calcium 600 No 1{table BID Calcium MG MG t_with_ 600 MG meals} Omeprazole Omeprazole No Omeprazole 40 MG 40 MG 40 MG Zinc 50 MG Zinc 50 MG No 1{table QD Zinc 50 MG t} Simvastatin Simvastatin No Simvastati 40 MG 40 MG n 40 MG Lisinopril- Lisinopril- No Lisinopril hydroCHLORO hydroCHLORO -hydroCHLO thiazide thiazide ROthiazide 20-12.5 MG 20-12.5 MG 20-12.5 MG Myrbetriq Myrbetriq No Myrbetriq 25 MG 25 MG 25 MG PriLOSEC 40 PriLOSEC 40 No 1{capsu QD PriLOSEC MG MG le} 40 MG Aspirin 81 Aspirin 81 No 1{table QD Aspirin 81 MG MG t} MG predniSONE predniSONE No 2{table QD predniSONE 20 MG 20 MG t} 20 MG Sertraline Sertraline No 1{table QD Sertraline HCl 100 MG HCl 100 MG t} HCl 100 MG Zinc 50 MG Zinc 50 MG No 1{table QD Zinc 50 MG t} PriLOSEC 40 PriLOSEC 40 No 1{capsu QD PriLOSEC MG MG le} 40 MG Myrbetriq Myrbetriq No Myrbetriq 25 MG 25 MG 25 MG Lisinopril- Lisinopril- No Lisinopril hydroCHLORO hydroCHLORO -hydroCHLO thiazide thiazide ROthiazide 20-12.5 MG 20-12.5 MG 20-12.5 MG Simvastatin Simvastatin No Simvastati 40 MG 40 MG n 40 MG Omeprazole Omeprazole No Omeprazole 40 MG 40 MG 40 MG predniSONE predniSONE No 2{table QD predniSONE 20 MG 20 MG t} 20 MG Lisinopril- Lisinopril- No Lisinopril hydroCHLORO hydroCHLORO -hydroCHLO thiazide thiazide ROthiazide 20-12.5 MG 20-12.5 MG 20-12.5 MG Calcium 600 Calcium 600 No 1{table BID Calcium MG MG t_with_ 600 MG meals} Sertraline Sertraline No 1{table QD Sertraline HCl 100 MG HCl 100 MG t} HCl 100 MG Aspirin 81 Aspirin 81 No 1{table QD Aspirin 81 MG MG t} MG Zinc 50 MG Zinc 50 MG No 1{table QD Zinc 50 MG t} PriLOSEC 40 PriLOSEC 40 No 1{capsu QD PriLOSEC MG MG le} 40 MG Myrbetriq Myrbetriq No Myrbetriq 25 MG 25 MG 25 MG Lisinopril- Lisinopril- No Lisinopril hydroCHLORO hydroCHLORO -hydroCHLO thiazide thiazide ROthiazide 20-12.5 MG 20-12.5 MG 20-12.5 MG Simvastatin Simvastatin No Simvastati 40 MG 40 MG n 40 MG Omeprazole Omeprazole No Omeprazole 40 MG 40 MG 40 MG predniSONE predniSONE No 2{table QD predniSONE 20 MG 20 MG t} 20 MG Lisinopril- Lisinopril- No Lisinopril hydroCHLORO hydroCHLORO -hydroCHLO thiazide thiazide ROthiazide 20-12.5 MG 20-12.5 MG 20-12.5 MG Calcium 600 Calcium 600 No 1{table BID Calcium MG MG t_with_ 600 MG meals} Sertraline Sertraline No 1{table QD Sertraline HCl 100 MG HCl 100 MG t} HCl 100 MG Aspirin 81 Aspirin 81 No 1{table QD Aspirin 81 MG MG t} MG Zinc 50 MG Zinc 50 MG No 1{table QD Zinc 50 MG t} PriLOSEC 40 PriLOSEC 40 No 1{capsu QD PriLOSEC MG MG le} 40 MG Myrbetriq Myrbetriq No Myrbetriq 25 MG 25 MG 25 MG Lisinopril- Lisinopril- No Lisinopril hydroCHLORO hydroCHLORO -hydroCHLO thiazide thiazide ROthiazide 20-12.5 MG 20-12.5 MG 20-12.5 MG Simvastatin Simvastatin No Simvastati 40 MG 40 MG n 40 MG Omeprazole Omeprazole No Omeprazole 40 MG 40 MG 40 MG predniSONE predniSONE No 2{table QD predniSONE 20 MG 20 MG t} 20 MG Lisinopril- Lisinopril- No Lisinopril hydroCHLORO hydroCHLORO -hydroCHLO thiazide thiazide ROthiazide 20-12.5 MG 20-12.5 MG 20-12.5 MG Calcium 600 Calcium 600 No 1{table BID Calcium MG MG t_with_ 600 MG meals} Sertraline Sertraline No 1{table QD Sertraline HCl 100 MG HCl 100 MG t} HCl 100 MG Aspirin 81 Aspirin 81 No 1{table QD Aspirin 81 MG MG t} MG Zinc 50 MG Zinc 50 MG No 1{table QD Zinc 50 MG t} PriLOSEC 40 PriLOSEC 40 No 1{capsu QD PriLOSEC MG MG le} 40 MG Myrbetriq Myrbetriq No Myrbetriq 25 MG 25 MG 25 MG Lisinopril- Lisinopril- No Lisinopril hydroCHLORO hydroCHLORO -hydroCHLO thiazide thiazide ROthiazide 20-12.5 MG 20-12.5 MG 20-12.5 MG Simvastatin Simvastatin No Simvastati 40 MG 40 MG n 40 MG Omeprazole Omeprazole No Omeprazole 40 MG 40 MG 40 MG predniSONE predniSONE No 2{table QD predniSONE 20 MG 20 MG t} 20 MG Lisinopril- Lisinopril- No Lisinopril hydroCHLORO hydroCHLORO -hydroCHLO thiazide thiazide ROthiazide 20-12.5 MG 20-12.5 MG 20-12.5 MG Calcium 600 Calcium 600 No 1{table BID Calcium MG MG t_with_ 600 MG meals} Sertraline Sertraline No 1{table QD Sertraline HCl 100 MG HCl 100 MG t} HCl 100 MG Aspirin 81 Aspirin 81 No 1{table QD Aspirin 81 MG MG t} MG Omeprazole Omeprazole No Omeprazole 40 MG 40 MG 40 MG Lisinopril- Lisinopril- No Lisinopril hydroCHLORO hydroCHLORO -hydroCHLO thiazide thiazide ROthiazide 20-12.5 MG 20-12.5 MG 20-12.5 MG Zinc 50 MG Zinc 50 MG No 1{table QD Zinc 50 MG t} Simvastatin Simvastatin No Simvastati 40 MG 40 MG n 40 MG Calcium 600 Calcium 600 No 1{table BID Calcium MG MG t_with_ 600 MG meals} Sertraline Sertraline No 1{table QD Sertraline HCl 100 MG HCl 100 MG t} HCl 100 MG Myrbetriq Myrbetriq No Myrbetriq 25 MG 25 MG 25 MG PriLOSEC 40 PriLOSEC 40 No 1{capsu QD PriLOSEC MG MG le} 40 MG Lisinopril- Lisinopril- No Lisinopril hydroCHLORO hydroCHLORO -hydroCHLO thiazide thiazide ROthiazide 20-12.5 MG 20-12.5 MG 20-12.5 MG Aspirin 81 Aspirin 81 No 1{table QD Aspirin 81 MG MG t} MG predniSONE predniSONE No 2{table QD predniSONE 20 MG 20 MG t} 20 MG Lisinopril- Lisinopril- No Lisinopril hydroCHLORO hydroCHLORO -hydroCHLO thiazide thiazide ROthiazide 20-12.5 MG 20-12.5 MG 20-12.5 MG PriLOSEC 40 PriLOSEC 40 No 1{capsu QD PriLOSEC MG MG le} 40 MG predniSONE predniSONE No 2{table QD predniSONE 20 MG 20 MG t} 20 MG Zinc 50 MG Zinc 50 MG No 1{table QD Zinc 50 MG t} Calcium 600 Calcium 600 No 1{table BID Calcium MG MG t_with_ 600 MG meals} Simvastatin Simvastatin No Simvastati 40 MG 40 MG n 40 MG Aspirin 81 Aspirin 81 No 1{table QD Aspirin 81 MG MG t} MG Lisinopril- Lisinopril- No Lisinopril hydroCHLORO hydroCHLORO -hydroCHLO thiazide thiazide ROthiazide 20-12.5 MG 20-12.5 MG 20-12.5 MG Omeprazole Omeprazole No Omeprazole 40 MG 40 MG 40 MG Myrbetriq Myrbetriq No Myrbetriq 25 MG 25 MG 25 MG Sertraline Sertraline No 1{table QD Sertraline HCl 100 MG HCl 100 MG t} HCl 100 MG Lisinopril- Lisinopril- No Lisinopril hydroCHLORO hydroCHLORO -hydroCHLO thiazide thiazide ROthiazide 20-12.5 MG 20-12.5 MG 20-12.5 MG PriLOSEC 40 PriLOSEC 40 No 1{capsu QD PriLOSEC MG MG le} 40 MG predniSONE predniSONE No 2{table QD predniSONE 20 MG 20 MG t} 20 MG Zinc 50 MG Zinc 50 MG No 1{table QD Zinc 50 MG t} Calcium 600 Calcium 600 No 1{table BID Calcium MG MG t_with_ 600 MG meals} Simvastatin Simvastatin No Simvastati 40 MG 40 MG n 40 MG Aspirin 81 Aspirin 81 No 1{table QD Aspirin 81 MG MG t} MG Lisinopril- Lisinopril- No Lisinopril hydroCHLORO hydroCHLORO -hydroCHLO thiazide thiazide ROthiazide 20-12.5 MG 20-12.5 MG 20-12.5 MG Omeprazole Omeprazole No Omeprazole 40 MG 40 MG 40 MG Myrbetriq Myrbetriq No Myrbetriq 25 MG 25 MG 25 MG Sertraline Sertraline No 1{table QD Sertraline HCl 100 MG HCl 100 MG t} HCl 100 MG PriLOSEC 40 PriLOSEC 40 No 1{capsu QD PriLOSEC MG MG le} 40 MG Myrbetriq Myrbetriq No Myrbetriq 25 MG 25 MG 25 MG Zinc 50 MG Zinc 50 MG No 1{table QD Zinc 50 MG t} predniSONE predniSONE No 2{table QD predniSONE 20 MG 20 MG t} 20 MG Lisinopril- Lisinopril- No Lisinopril hydroCHLORO hydroCHLORO -hydroCHLO thiazide thiazide ROthiazide 20-12.5 MG 20-12.5 MG 20-12.5 MG Omeprazole Omeprazole No Omeprazole 40 MG 40 MG 40 MG Simvastatin Simvastatin No Simvastati 40 MG 40 MG n 40 MG Lisinopril- Lisinopril- No Lisinopril hydroCHLORO hydroCHLORO -hydroCHLO thiazide thiazide ROthiazide 20-12.5 MG 20-12.5 MG 20-12.5 MG Aspirin 81 Aspirin 81 No 1{table QD Aspirin 81 MG MG t} MG Calcium 600 Calcium 600 No 1{table BID Calcium MG MG t_with_ 600 MG meals} Sertraline Sertraline No 1{table QD Sertraline HCl 100 MG HCl 100 MG t} HCl 100 MG Calcium 600 Calcium 600 No 1{table BID Calcium MG MG t_with_ 600 MG meals} Meloxicam Meloxicam No 1{table QD Meloxicam 7.5 MG 7.5 MG t} 7.5 MG Zinc 50 MG Zinc 50 MG No 1{table QD Zinc 50 MG t} Myrbetriq Myrbetriq No Myrbetriq 25 MG 25 MG 25 MG PriLOSEC 40 PriLOSEC 40 No 1{capsu QD PriLOSEC MG MG le} 40 MG Omeprazole Omeprazole No Omeprazole 40 MG 40 MG 40 MG Aspirin 81 Aspirin 81 No 1{table QD Aspirin 81 MG MG t} MG predniSONE predniSONE No 2{table QD predniSONE 20 MG 20 MG t} 20 MG Lisinopril- Lisinopril- No Lisinopril hydroCHLORO hydroCHLORO -hydroCHLO thiazide thiazide ROthiazide 20-12.5 MG 20-12.5 MG 20-12.5 MG Simvastatin Simvastatin No Simvastati 40 MG 40 MG n 40 MG Sertraline Sertraline No 1{table QD Sertraline HCl 100 MG HCl 100 MG t} HCl 100 MG Lisinopril- Lisinopril- No Lisinopril hydroCHLORO hydroCHLORO -hydroCHLO thiazide thiazide ROthiazide 20-12.5 MG 20-12.5 MG 20-12.5 MG Calcium 600 Calcium 600 No 1{table BID Calcium MG MG t_with_ 600 MG meals} Meloxicam Meloxicam No 1{table QD Meloxicam 7.5 MG 7.5 MG t} 7.5 MG Zinc 50 MG Zinc 50 MG No 1{table QD Zinc 50 MG t} Myrbetriq Myrbetriq No Myrbetriq 25 MG 25 MG 25 MG PriLOSEC 40 PriLOSEC 40 No 1{capsu QD PriLOSEC MG MG le} 40 MG Omeprazole Omeprazole No Omeprazole 40 MG 40 MG 40 MG Aspirin 81 Aspirin 81 No 1{table QD Aspirin 81 MG MG t} MG predniSONE predniSONE No 2{table QD predniSONE 20 MG 20 MG t} 20 MG Lisinopril- Lisinopril- No Lisinopril hydroCHLORO hydroCHLORO -hydroCHLO thiazide thiazide ROthiazide 20-12.5 MG 20-12.5 MG 20-12.5 MG Simvastatin Simvastatin No Simvastati 40 MG 40 MG n 40 MG Sertraline Sertraline No 1{table QD Sertraline HCl 100 MG HCl 100 MG t} HCl 100 MG Lisinopril- Lisinopril- No Lisinopril hydroCHLORO hydroCHLORO -hydroCHLO thiazide thiazide ROthiazide 20-12.5 MG 20-12.5 MG 20-12.5 MG Omeprazole Omeprazole No Omeprazole 40 MG 40 MG 40 MG Lisinopril- Lisinopril- No Lisinopril hydroCHLORO hydroCHLORO -hydroCHLO thiazide thiazide ROthiazide 20-12.5 MG 20-12.5 MG 20-12.5 MG Aspirin 81 Aspirin 81 No 1{table QD Aspirin 81 MG MG t} MG predniSONE predniSONE No 2{table QD predniSONE 20 MG 20 MG t} 20 MG Lisinopril- Lisinopril- No Lisinopril hydroCHLORO hydroCHLORO -hydroCHLO thiazide thiazide ROthiazide 20-12.5 MG 20-12.5 MG 20-12.5 MG Zinc 50 MG Zinc 50 MG No 1{table QD Zinc 50 MG t} Calcium 600 Calcium 600 No 1{table BID Calcium MG MG t_with_ 600 MG meals} Simvastatin Simvastatin No Simvastati 40 MG 40 MG n 40 MG Sertraline Sertraline No 1{table QD Sertraline HCl 100 MG HCl 100 MG t} HCl 100 MG Meloxicam Meloxicam No 1{table QD Meloxicam 7.5 MG 7.5 MG t} 7.5 MG Myrbetriq Myrbetriq No Myrbetriq 25 MG 25 MG 25 MG PriLOSEC 40 PriLOSEC 40 No 1{capsu QD PriLOSEC MG MG le} 40 MG Omeprazole Omeprazole No Omeprazole 40 MG 40 MG 40 MG Lisinopril- Lisinopril- No Lisinopril hydroCHLORO hydroCHLORO -hydroCHLO thiazide thiazide ROthiazide 20-12.5 MG 20-12.5 MG 20-12.5 MG Aspirin 81 Aspirin 81 No 1{table QD Aspirin 81 MG MG t} MG predniSONE predniSONE No 2{table QD predniSONE 20 MG 20 MG t} 20 MG Lisinopril- Lisinopril- No Lisinopril hydroCHLORO hydroCHLORO -hydroCHLO thiazide thiazide ROthiazide 20-12.5 MG 20-12.5 MG 20-12.5 MG Zinc 50 MG Zinc 50 MG No 1{table QD Zinc 50 MG t} Calcium 600 Calcium 600 No 1{table BID Calcium MG MG t_with_ 600 MG meals} Simvastatin Simvastatin No Simvastati 40 MG 40 MG n 40 MG Sertraline Sertraline No 1{table QD Sertraline HCl 100 MG HCl 100 MG t} HCl 100 MG Meloxicam Meloxicam No 1{table QD Meloxicam 7.5 MG 7.5 MG t} 7.5 MG Myrbetriq Myrbetriq No Myrbetriq 25 MG 25 MG 25 MG PriLOSEC 40 PriLOSEC 40 No 1{capsu QD PriLOSEC MG MG le} 40 MG Omeprazole Omeprazole No Omeprazole 40 MG 40 MG 40 MG Lisinopril- Lisinopril- No Lisinopril hydroCHLORO hydroCHLORO -hydroCHLO thiazide thiazide ROthiazide 20-12.5 MG 20-12.5 MG 20-12.5 MG Aspirin 81 Aspirin 81 No 1{table QD Aspirin 81 MG MG t} MG predniSONE predniSONE No 2{table QD predniSONE 20 MG 20 MG t} 20 MG Lisinopril- Lisinopril- No Lisinopril hydroCHLORO hydroCHLORO -hydroCHLO thiazide thiazide ROthiazide 20-12.5 MG 20-12.5 MG 20-12.5 MG Zinc 50 MG Zinc 50 MG No 1{table QD Zinc 50 MG t} Calcium 600 Calcium 600 No 1{table BID Calcium MG MG t_with_ 600 MG meals} Simvastatin Simvastatin No Simvastati 40 MG 40 MG n 40 MG Sertraline Sertraline No 1{table QD Sertraline HCl 100 MG HCl 100 MG t} HCl 100 MG Meloxicam Meloxicam No 1{table QD Meloxicam 7.5 MG 7.5 MG t} 7.5 MG Myrbetriq Myrbetriq No Myrbetriq 25 MG 25 MG 25 MG PriLOSEC 40 PriLOSEC 40 No 1{capsu QD PriLOSEC MG MG le} 40 MG Omeprazole Omeprazole No Omeprazole 40 MG 40 MG 40 MG Lisinopril- Lisinopril- No Lisinopril hydroCHLORO hydroCHLORO -hydroCHLO thiazide thiazide ROthiazide 20-12.5 MG 20-12.5 MG 20-12.5 MG Aspirin 81 Aspirin 81 No 1{table QD Aspirin 81 MG MG t} MG predniSONE predniSONE No 2{table QD predniSONE 20 MG 20 MG t} 20 MG Lisinopril- Lisinopril- No Lisinopril hydroCHLORO hydroCHLORO -hydroCHLO thiazide thiazide ROthiazide 20-12.5 MG 20-12.5 MG 20-12.5 MG Zinc 50 MG Zinc 50 MG No 1{table QD Zinc 50 MG t} Calcium 600 Calcium 600 No 1{table BID Calcium MG MG t_with_ 600 MG meals} Simvastatin Simvastatin No Simvastati 40 MG 40 MG n 40 MG Sertraline Sertraline No 1{table QD Sertraline HCl 100 MG HCl 100 MG t} HCl 100 MG Meloxicam Meloxicam No 1{table QD Meloxicam 7.5 MG 7.5 MG t} 7.5 MG Myrbetriq Myrbetriq No Myrbetriq 25 MG 25 MG 25 MG PriLOSEC 40 PriLOSEC 40 No 1{capsu QD PriLOSEC MG MG le} 40 MG PriLOSEC 40 PriLOSEC 40 No 1{capsu QD PriLOSEC MG MG le} 40 MG Lisinopril- Lisinopril- No Lisinopril hydroCHLORO hydroCHLORO -hydroCHLO thiazide thiazide ROthiazide 20-12.5 MG 20-12.5 MG 20-12.5 MG predniSONE predniSONE No 2{table QD predniSONE 20 MG 20 MG t} 20 MG Myrbetriq Myrbetriq No Myrbetriq 25 MG 25 MG 25 MG Simvastatin Simvastatin No Simvastati 40 MG 40 MG n 40 MG Zinc 50 MG Zinc 50 MG No 1{table QD Zinc 50 MG t} Lisinopril- Lisinopril- No Lisinopril hydroCHLORO hydroCHLORO -hydroCHLO thiazide thiazide ROthiazide 20-12.5 MG 20-12.5 MG 20-12.5 MG Aspirin 81 Aspirin 81 No 1{table QD Aspirin 81 MG MG t} MG Sertraline Sertraline No 1{table QD Sertraline HCl 100 MG HCl 100 MG t} HCl 100 MG Omeprazole Omeprazole No Omeprazole 40 MG 40 MG 40 MG Meloxicam Meloxicam No 1{table QD Meloxicam 7.5 MG 7.5 MG t} 7.5 MG Calcium 600 Calcium 600 No 1{table BID Calcium MG MG t_with_ 600 MG meals} Doxylamine Doxylamine No 1{table QD Doxylamine Succinate Succinate t_at_be Succinate (Sleep) 25 (Sleep) 25 dtime_a (Sleep) 25 MG MG s_neede MG d} Omeprazole Omeprazole No Omeprazole 40 MG 40 MG 40 MG Sertraline Sertraline No 2{table QD Sertraline HCl 100 MG HCl 100 MG t} HCl 100 MG Lisinopril- Lisinopril- No Lisinopril hydroCHLORO hydroCHLORO -hydroCHLO thiazide thiazide ROthiazide 20-12.5 MG 20-12.5 MG 20-12.5 MG metFORMIN metFORMIN No BID metFORMIN HCl 1000 MG HCl 1000 MG HCl 1000 MG Simvastatin Simvastatin No Simvastati 40 MG 40 MG n 40 MG Doxylamine Doxylamine No 1{table QD Doxylamine Succinate Succinate t_at_be Succinate (Sleep) 25 (Sleep) 25 dtime_a (Sleep) 25 MG MG s_neede MG d} Omeprazole Omeprazole No Omeprazole 40 MG 40 MG 40 MG Sertraline Sertraline No 2{table QD Sertraline HCl 100 MG HCl 100 MG t} HCl 100 MG Lisinopril- Lisinopril- No Lisinopril hydroCHLORO hydroCHLORO -hydroCHLO thiazide thiazide ROthiazide 20-12.5 MG 20-12.5 MG 20-12.5 MG metFORMIN metFORMIN No BID metFORMIN HCl 1000 MG HCl 1000 MG HCl 1000 MG Simvastatin Simvastatin No Simvastati 40 MG 40 MG n 40 MG Doxylamine Doxylamine No 1{table QD Doxylamine Succinate Succinate t_at_be Succinate (Sleep) 25 (Sleep) 25 dtime_a (Sleep) 25 MG MG s_neede MG d} Omeprazole Omeprazole No Omeprazole 40 MG 40 MG 40 MG Sertraline Sertraline No 2{table QD Sertraline HCl 100 MG HCl 100 MG t} HCl 100 MG Lisinopril- Lisinopril- No Lisinopril hydroCHLORO hydroCHLORO -hydroCHLO thiazide thiazide ROthiazide 20-12.5 MG 20-12.5 MG 20-12.5 MG metFORMIN metFORMIN No BID metFORMIN HCl 1000 MG HCl 1000 MG HCl 1000 MG Simvastatin Simvastatin No Simvastati 40 MG 40 MG n 40 MG Lisinopril- Lisinopril- No 1{table QD Lisinopril hydroCHLORO hydroCHLORO t} -hydroCHLO thiazide thiazide ROthiazide 20-12.5 MG 20-12.5 MG 20-12.5 MG Doxylamine Doxylamine No 1{table QD Doxylamine Succinate Succinate t_at_be Succinate (Sleep) 25 (Sleep) 25 dtime_a (Sleep) 25 MG MG s_neede MG d} Omeprazole Omeprazole No Omeprazole 40 MG 40 MG 40 MG Sertraline Sertraline No 2{table QD Sertraline HCl 100 MG HCl 100 MG t} HCl 100 MG Lisinopril- Lisinopril- No Lisinopril hydroCHLORO hydroCHLORO -hydroCHLO thiazide thiazide ROthiazide 20-12.5 MG 20-12.5 MG 20-12.5 MG metFORMIN metFORMIN No BID metFORMIN HCl 1000 MG HCl 1000 MG HCl 1000 MG Simvastatin Simvastatin No Simvastati 40 MG 40 MG n 40 MG PriLOSEC 40 PriLOSEC 40 No 1{capsu QD PriLOSEC MG MG le} 40 MG Zinc 50 MG Zinc 50 MG No 1{table QD Zinc 50 MG t} Doxylamine Doxylamine No 1{table QD Doxylamine Succinate Succinate t_at_be Succinate (Sleep) 25 (Sleep) 25 dtime_a (Sleep) 25 MG MG s_neede MG d} Omeprazole Omeprazole No Omeprazole 40 MG 40 MG 40 MG Sertraline Sertraline No 2{table QD Sertraline HCl 100 MG HCl 100 MG t} HCl 100 MG Lisinopril- Lisinopril- No Lisinopril hydroCHLORO hydroCHLORO -hydroCHLO thiazide thiazide ROthiazide 20-12.5 MG 20-12.5 MG 20-12.5 MG metFORMIN metFORMIN No BID metFORMIN HCl 1000 MG HCl 1000 MG HCl 1000 MG Simvastatin Simvastatin No Simvastati 40 MG 40 MG n 40 MG Simvastatin Simvastatin No 1{table QD Simvastati 40 MG 40 MG t_in_th n 40 MG e_eveni ng} metFORMIN metFORMIN No 1{table BID metFORMIN HCl 500 MG HCl 500 MG t_with_ HCl 500 MG a_meal} Doxylamine Doxylamine No 1{table QD Doxylamine Succinate Succinate t_at_be Succinate (Sleep) 25 (Sleep) 25 dtime_a (Sleep) 25 MG MG s_neede MG d} Omeprazole Omeprazole No Omeprazole 40 MG 40 MG 40 MG Sertraline Sertraline No 2{table QD Sertraline HCl 100 MG HCl 100 MG t} HCl 100 MG Lisinopril- Lisinopril- No Lisinopril hydroCHLORO hydroCHLORO -hydroCHLO thiazide thiazide ROthiazide 20-12.5 MG 20-12.5 MG 20-12.5 MG metFORMIN metFORMIN No BID metFORMIN HCl 1000 MG HCl 1000 MG HCl 1000 MG Ranitidine Ranitidine No Ranitidine HCl 150MG HCl 150MG HCl 150MG Simvastatin Simvastatin No Simvastati 40 MG 40 MG n 40 MG Doxylamine Doxylamine No 1{table QD Doxylamine Succinate Succinate t_at_be Succinate (Sleep) 25 (Sleep) 25 dtime_a (Sleep) 25 MG MG s_neede MG d} Omeprazole Omeprazole No Omeprazole 40 MG 40 MG 40 MG Anastrozole Anastrozole No 1{table QD Anastrozol 1 MG 1 MG t} e 1 MG Sertraline Sertraline No 2{table QD Sertraline HCl 100 MG HCl 100 MG t} HCl 100 MG Lisinopril- Lisinopril- No Lisinopril hydroCHLORO hydroCHLORO -hydroCHLO thiazide thiazide ROthiazide 20-12.5 MG 20-12.5 MG 20-12.5 MG metFORMIN metFORMIN No BID metFORMIN HCl 1000 MG HCl 1000 MG HCl 1000 MG Simvastatin Simvastatin No Simvastati 40 MG 40 MG n 40 MG Aspirin 81 Aspirin 81 No 1{table QD Aspirin 81 MG MG t} MG Calcium 600 Calcium 600 No 1{table BID Calcium MG MG t_with_ 600 MG meals} PriLOSEC 40 PriLOSEC 40 No 1{capsu QD PriLOSEC MG MG le} 40 MG Calcium 600 Calcium 600 No 1{table BID Calcium MG MG t_with_ 600 MG meals} Zinc 50 MG Zinc 50 MG No 1{table QD Zinc 50 MG t} Lisinopril- Lisinopril- No 1{table QD Lisinopril hydroCHLORO hydroCHLORO t} -hydroCHLO thiazide thiazide ROthiazide 20-12.5 MG 20-12.5 MG 20-12.5 MG Sertraline Sertraline No 1{table QD Sertraline HCl 25 MG HCl 25 MG t} HCl 25 MG Anastrozole Anastrozole 2021- No 1{table QD Anastrozol 1 MG 1 MG 01-20 t} e 1 MG 00:00 :00 Immunizations Ordered Filled Immunization Date Status Comments Sourc e Immunization Name Name Prevnar 13 Prevnar 13 2020-02-12 Completed [facility]Pneumonia Vaccine -Pneumonia Vaccine 10:11:00 - [facility] Prevnar 13 Prevnar 13 2020-02-12 Completed [facility] -Pneumonia Vaccine -Pneumonia Vaccine 10:11:00 - [facility] Prevnar 13 Prevnar 13 2020-02-12 Completed [facility] -Pneumonia Vaccine -Pneumonia Vaccine 10:11:00 - [facility] Prevnar 13 Prevnar 13 2020-02-12 Completed [facility] -Pneumonia Vaccine -Pneumonia Vaccine 10:11:00 - [facility] Prevnar 13 Prevnar 13 2020-02-12 Completed [facility] -Pneumonia Vaccine -Pneumonia Vaccine 10:11:00 - [facility] Prevnar 13 Prevnar 13 2020-02-12 Completed [facility] -Pneumonia Vaccine -Pneumonia Vaccine 10:11:00 - [facility] Prevnar 13 Prevnar 13 2020-02-12 Completed [facility] -Pneumonia Vaccine -Pneumonia Vaccine 10:11:00 - [facility] Prevnar 13 Prevnar 13 2020-02-12 Completed [facility] -Pneumonia Vaccine -Pneumonia Vaccine 10:11:00 - [facility] Prevnar 13 Prevnar 13 2020-02-12 Completed [facility] -Pneumonia Vaccine -Pneumonia Vaccine 10:11:00 - [facility] Prevnar 13 Prevnar 13 2020-02-12 Completed [facility] -Pneumonia Vaccine -Pneumonia Vaccine 10:11:00 - [facility] Prevnar 13 Prevnar 13 2020-02-12 Completed [facility] -Pneumonia Vaccine -Pneumonia Vaccine 10:11:00 - [facility] Prevnar 13 Prevnar 13 2020-02-12 Completed [facility] -Pneumonia Vaccine -Pneumonia Vaccine 10:11:00 - [facility] Prevnar 13 Prevnar 13 2020-02-12 Completed [facility] -Pneumonia Vaccine -Pneumonia Vaccine 10:11:00 - [facility] Prevnar 13 Prevnar 13 2020-02-12 Completed [facility] -Pneumonia Vaccine -Pneumonia Vaccine 10:11:00 - [facility] Prevnar 13 Prevnar 13 2020-02-12 Completed [facility] -Pneumonia Vaccine -Pneumonia Vaccine 10:11:00 - [facility] Prevnar 13 Prevnar 13 2020-02-12 Completed [facility] -Pneumonia Vaccine -Pneumonia Vaccine 10:11:00 - [facility] Prevnar 13 Prevnar 13 2020-02-12 Completed [facility] -Pneumonia Vaccine -Pneumonia Vaccine 10:11:00 - [facility] Prevnar 13 Prevnar 13 2020-02-12 Completed [facility] -Pneumonia Vaccine -Pneumonia Vaccine 10:11:00 - [facility] Prevnar 13 Prevnar 13 2020-02-12 Completed [facility] -Pneumonia Vaccine -Pneumonia Vaccine 10:11:00 [facility] Prevnar 13 Prevnar 13 2020-02-12 Completed [facility] -Pneumonia Vaccine -Pneumonia Vaccine 10:11:00 - [facility] Prevnar 13 Prevnar 13 2020-02-12 Completed [facility] -Pneumonia Vaccine -Pneumonia Vaccine 10:11:00 [facility] Prevnar 13 Prevnar 13 2020-02-12 Completed [facility] -Pneumonia Vaccine -Pneumonia Vaccine 10:11:00 - [facility] Prevnar 13 Prevnar 13 2020-02-12 Completed [facility] -Pneumonia Vaccine -Pneumonia Vaccine 10:11:00 - [facility] Prevnar 13 Prevnar 13 2020-02-12 Completed [facility] -Pneumonia Vaccine -Pneumonia Vaccine 10:11:00 - [facility] Prevnar 13 Prevnar 13 2020-02-12 Completed [facility] -Pneumonia Vaccine -Pneumonia Vaccine 10:11:00 - [facility] Prevnar 13 Prevnar 13 2020-02-12 Completed [facility] -Pneumonia Vaccine -Pneumonia Vaccine 00:00:00 - [facility] Flucelvax - Flucelvax - 2018-05-28 [facility] 12:20:00 - [facility] Flucelvax - Flucelvax - 2018-05-28 [facility] multidose vial 12:20:00 - [facility] Flucelvax - Flucelvax - 2018-05-28 [facility] multidose vial 12:20:00 - [facility] Flucelvax - Flucelvax - 2018-05-28 [facility] multidose vial 12:20:00 - [facility] Flucelvax - Flucelvax - 2018-05-28 [facility] multidose vial 12:20:00 - [facility] Flucelvax - Flucelvax - 2018-05-28 [facility] multidose vial 12:20:00 - [facility] Flucelvax - Flucelvax - 2018-05-28 [facility] multidose vial 12:20:00 - [facility] Flucelvax - Flucelvax - 2018-05-28 Completed [facility] multidose vial multidose vial 12:20:00 - [facility] Flucelvax - Flucelvax - 2018-05-28 Completed [facility] multidose vial multidose vial 12:20:00 - [facility] Flucelvax - Flucelvax - 2018-05-28 Completed [facility] multidose vial multidose vial 12:20:00 - [facility] Flucelvax - Flucelvax - 2018-05-28 Completed [facility] multidose vial multidose vial 12:20:00 - [facility] Flucelvax - Flucelvax - 2018-05-28 Completed [facility] multidose vial multidose vial 12:20:00 - [facility] Flucelvax - Flucelvax - 2018-05-28 Completed [facility] multidose vial multidose vial 12:20:00 - [facility] Flucelvax - Flucelvax - 2018-05-28 Completed [facility] multidose vial multidose vial 12:20:00 - [facility] Flucelvax - Flucelvax - 2018-05-28 Completed [facility] multidose vial multidose vial 12:20:00 - [facility] Flucelvax - Flucelvax - 2018-05-28 Completed [facility] multidose vial multidose vial 12:20:00 - [facility] Flucelvax - Flucelvax - 2018-05-28 Completed [facility] multidose vial multidose vial 12:20:00 - [facility] Flucelvax - Flucelvax - 2018-05-28 Completed [facility] multidose vial multidose vial 12:20:00 - [facility] Flucelvax - Flucelvax - 2018-05-28 Completed [facility] multidose vial multidose vial 12:20:00 - [facility] Flucelvax - Flucelvax - 2018-05-28 Completed [facility] multidose vial multidose vial 12:20:00 - [facility] Flucelvax - Flucelvax - 2018-05-28 Completed [facility] multidose vial multidose vial 12:20:00 - [facility] Flucelvax - Flucelvax - 2018-05-28 Completed [facility] multidose vial multidose vial 12:20:00 - [facility] Flucelvax - Flucelvax - 2018-05-28 Completed [facility] multidose vial multidose vial 12:20:00 - [facility] Flucelvax - Flucelvax - 2018-05-28 Completed [facility] multidose vial multidose vial 12:20:00 - [facility] Flucelvax - Flucelvax - 2018-05-28 Completed [facility] multidose vial multidose vial 12:20:00 - [facility] Flucelvax - Flucelvax - Unknown Completed [facility] multidose vial multidose vial - [facility] Prevnar 13 Prevnar 13 Unknown Completed [facility] -Pneumonia Vaccine -Pneumonia Vaccine - [facility] Flucelvax - Flucelvax - Unknown Completed [facility] multidose vial multidose vial - [facility] Prevnar 13 Prevnar 13 Unknown Completed [facility] -Pneumonia Vaccine -Pneumonia Vaccine - [facility] Flucelvax - Flucelvax - Unknown Completed [facility] multidose vial multidose vial - [facility] Prevnar 13 Prevnar 13 Unknown Completed [facility] -Pneumonia Vaccine -Pneumonia Vaccine - [facility] Flucelvax - Flucelvax - Unknown Completed [facility] multidose vial multidose vial - [facility] Prevnar 13 Prevnar 13 Unknown Completed [facility] -Pneumonia Vaccine -Pneumonia Vaccine - [facility] Flucelvax - Flucelvax - Unknown Completed [facility] multidose vial multidose vial - [facility] Prevnar 13 Prevnar 13 Unknown Completed [facility] -Pneumonia Vaccine -Pneumonia Vaccine - [facility] Flucelvax - Flucelvax - Unknown Completed [facility] multidose vial multidose vial - [facility] Prevnar 13 Prevnar 13 Unknown Completed [facility] -Pneumonia Vaccine -Pneumonia Vaccine - [facility] Vital Signs Vital Name Observation Time Observation Value Comments Source height 2022-11-09 11:20:00 60.5 [in_i] [facility] weight 2022-11-09 11:20:00 133.8 [lb_av] [facility] temperature 2022-11-09 11:20:00 98.2 [degF] [facility] bmi 2022-11-09 11:20:00 25.7 kg/m2 Common S pirit [facility] oximetry 2022-11-09 11:20:00 98 % Common [facility] respiratory rate 2022-11-09 11:20:00 16 /min Comm on [facility] - [facility] blood pressure 2022-11-09 11:20:00 122 mm[Hg] [facility] - systolic [facility] blood pressure 2022-11-09 11:20:00 83 mm[Hg] [facility] - diastolic [facility] height 2022-07-29 13:00:00 60.5 [in_i] Common [facility] weight 2022-07-29 13:00:00 137 [lb_av] [facility] temperature 2022-07-29 13:00:00 97.1 [degF] Common [facility] bmi 2022-07-29 13:00:00 26.31 kg/m2 [facility] oximetry 2022-07-29 13:00:00 99 % Common [facility] blood pressure 2022-07-29 13:00:00 136 mm[Hg] Common [facility] - systolic [facility] blood pressure 2022-07-29 13:00:00 80 mm[Hg] [facility] - diastolic [facility] height 2022-05-30 09:30:00 60.5 [in_i] Common [facility] weight 2022-05-30 09:30:00 147 [lb_av] Common S pirit [facility] temperature 2022-05-30 09:30:00 98.0 [degF] Common S [facility] bmi 2022-05-30 09:30:00 28.23 kg/m2 [facility] blood pressure 2022-05-30 09:30:00 126 mm[Hg] [facility] - systolic [facility] blood pressure 2022-05-30 09:30:00 78 mm[Hg] [facility] - diastolic [facility] height 2022-04-26 09:30:00 60.5 [in_i] Common S pirit - [facility] weight 2022-04-26 09:30:00 147.2 [lb_av] [facility] - [facility] temperature 2022-04-26 09:30:00 98.0 [degF] Common S pirit - [facility] bmi 2022-04-26 09:30:00 28.27 kg/m2 Common S pirit - [facility] blood pressure 2022-04-26 09:30:00 126 mm[Hg] [facility] - systolic [facility] blood pressure 2022-04-26 09:30:00 80 mm[Hg] [facility] - diastolic [facility] height 2022-04-18 09:30:00 60.5 [in_i] [facility] weight 2022-04-18 09:30:00 146 [lb_av] [facility] temperature 2022-04-18 09:30:00 97.7 [degF] Common S pirit [facility] bmi 2022-04-18 09:30:00 28.04 kg/m2 Common S pirit [facility] blood pressure 2022-04-18 09:30:00 124 mm[Hg] [facility] - systolic [facility] blood pressure 2022-04-18 09:30:00 74 mm[Hg] [facility] - diastolic [facility] height 2022-04-12 09:30:00 60.5 [in_i] Common S pirit [facility] weight 2022-04-12 09:30:00 146 [lb_av] Common S pirit [facility] temperature 2022-04-12 09:30:00 97.2 [degF] Common S pirit [facility] bmi 2022-04-12 09:30:00 28.04 kg/m2 [facility] blood pressure 2022-04-12 09:30:00 138 mm[Hg] [facility] - systolic [facility] blood pressure 2022-04-12 09:30:00 84 mm[Hg] [facility] - diastolic [facility] height 2022-04-05 09:00:00 60.5 [in_i] Common S pirit - [facility] weight 2022-04-05 09:00:00 146 [lb_av] Common S p[facility] - [facility] temperature 2022-04-05 09:00:00 97.6 [degF] Common S pirit - [facility] bmi 2022-04-05 09:00:00 28.04 kg/m2 Common S pirit - [facility] blood pressure 2022-04-05 09:00:00 134 mm[Hg] [facility] - systolic [facility] blood pressure 2022-04-05 09:00:00 84 mm[Hg] [facility] - diastolic [facility] height 2022-01-26 14:40:00 60.5 [in_i] Common S pirit - [facility] weight 2022-01-26 14:40:00 146.2 [lb_av] Common [facility] temperature 2022-01-26 14:40:00 97.1 [degF] Common S pirit [facility] bmi 2022-01-26 14:40:00 28.08 kg/m2 [facility] S pirit [facility] oximetry 2022-01-26 14:40:00 97 % [facility] 2022-01-26 14:40:00 16 /min Comm on [facility] - [facility] blood pressure 2022-01-26 14:40:00 134 mm[Hg] [facility] - systolic [facility] blood pressure 2022-01-26 14:40:00 82 mm[Hg] Common [facility] - diastolic [facility] height 2022-01-18 14:15:00 63 [in_i] Common S pirit [facility] weight 2022-01-18 14:15:00 147 [lb_av] Common S pirit [facility] bmi 2022-01-18 14:15:00 26.04 kg/m2 Common S pirit - [facility] blood pressure 2022-01-18 14:15:00 133 mm[Hg] [facility] - systolic [facility] blood pressure 2022-01-18 14:15:00 86 mm[Hg] [facility] - diastolic [facility] height 2021-11-22 09:30:00 63 [in_i] Common S pirit - [facility] weight 2021-11-22 09:30:00 149.3 [lb_av] Common [facility] - [facility] temperature 2021-11-22 09:30:00 97.9 [degF] Common S pirit [facility] bmi 2021-11-22 09:30:00 26.44 kg/m2 Common S pirit [facility] blood pressure 2021-11-22 09:30:00 146 mm[Hg] Common [facility] - systolic [facility] blood pressure 2021-11-22 09:30:00 90 mm[Hg] [facility] - diastolic [facility] height 2021-11-17 08:00:00 63 [in_i] Common S pirit [facility] weight 2021-11-17 08:00:00 148.2 [lb_av] [facility] temperature 2021-11-17 08:00:00 98.1 [degF] Common S [facility] bmi 2021-11-17 08:00:00 26.25 kg/m2 [facility] S pirit [facility] oximetry 2021-11-17 08:00:00 100 % [facility] S pirit [facility] respiratory rate 2021-11-17 08:00:00 16 /min Comm on Spirit [facility] blood pressure 2021-11-17 08:00:00 126 mm[Hg] Common [facility] - systolic [facility] blood pressure 2021-11-17 08:00:00 72 mm[Hg] Common [facility] - diastolic [facility] height 2021-10-27 08:00:00 63 [in_i] Common S pirit [facility] weight 2021-10-27 08:00:00 148.2 [lb_av] Common [facility] temperature 2021-10-27 08:00:00 97.0 [degF] [facility] bmi 2021-10-27 08:00:00 26.25 kg/m2 Common S [facility] oximetry 2021-10-27 08:00:00 99 % [facility] respiratory rate 2021-10-27 08:00:00 16 /min Comm on [facility] blood pressure 2021-10-27 08:00:00 128 mm[Hg] Common [facility] - systolic [facility] blood pressure 2021-10-27 08:00:00 62 mm[Hg] [facility] blood pressure 2021-10-06 09:40:00 136 mm[Hg] [facility] - [facility] blood pressure 2021-10-06 09:40:00 80 mm[Hg] Common [facility] - diastolic [facility] height 2021-10-06 09:40:00 63 [in_i] [facility] weight 2021-10-06 09:40:00 146.8 [lb_av] [facility] temperature 2021-10-06 09:40:00 98.2 [degF] [facility] bmi 2021-10-06 09:40:00 26 kg/m2 [facility] S pirit [facility] oximetry 2021-10-06 09:40:00 98 % Common [facility] respiratory rate 2021-10-06 09:40:00 16 /min Comm on [facility] height 2021-07-23 11:40:00 63 [in_i] Common [facility] weight 2021-07-23 11:40:00 145 [lb_av] [facility] bmi 2021-07-23 11:40:00 25.68 kg/m2 Common S pirit [facility] height 2021-06-01 10:40:00 63 [in_i] [facility] weight 2021-06-01 10:40:00 147.0 [lb_av] [facility] temperature 2021-06-01 10:40:00 97.7 [degF] [facility] bmi 2021-06-01 10:40:00 26.04 kg/m2 [facility] oximetry 2021-06-01 10:40:00 99 % [facility] respiratory rate 2021-06-01 10:40:00 16 /min Comm on [facility] blood pressure 2021-06-01 10:40:00 134 mm[Hg] Common [facility] - systolic [facility] blood pressure 2021-06-01 10:40:00 72 mm[Hg] [facility] diastolic [facility] Systolic blood 2021-04-14 14:55:00 164 mm[Hg] Univer sity of pressure [facility] Diastolic blood 2021-04-14 14:55:00 109 mm[Hg] Unive rsity of [facility] Heart rate 2021-04-14 14:55:00 90 /min [facility] Body temperature 2021-04-14 14:55:00 36.94 [facility] 2021-04-14 14:55:00 16 /min [facility] height 2021-04-14 14:55:00 157.5 cm [facility] Body weight 2021-04-14 14:55:00 65.772 kg [facility] BMI 2021-04-14 14:55:00 26.52 kg/m2 [facility] Oxygen saturation in 2021-04-14 14:55:00 99 /min [facility] Arterial blood by [facility] Pulse oximetry Branch Systolic blood 2020-09-28 20:29:00 142 mm[Hg] Univer sity of pressure [facility] Diastolic blood 2020-09-28 20:29:00 90 mm[Hg] Unive rsity of [facility] Heart rate 2020-09-28 20:29:00 99 /min [facility] Body height 2020-09-28 20:28:00 160 cm [facility] Body weight 2020-09-28 20:28:00 64.864 kg [facility] BMI 2020-09-28 20:28:00 25.33 kg/m2 [facility] Systolic blood 2020-07-16 20:19:00 143 mm[Hg] Univer sity [facility] Diastolic blood 2020-07-16 20:19:00 81 mm[Hg] Unive rsity of [facility] Heart rate 2020-07-16 20:17:00 88 /min [facility] Procedures Procedure Date / Time Performed Performing Clinician Sourmaya e XR HUMERUS 2 VW LEFT 2021-04-14 15:37:42 Arian Hyatt [facility] CONSENT/REFUSAL FOR 2021-04-14 14:50:39 Doctor Unassigned, No [facility] DIAGNOSIS AND [facility] TREATMENT XR SHOULDER <2 VW LEFT 2020-09-28 20:31:[address] [facility] ASSIGNMENT OF BENEFITS 2020-07-16 20:03:58 Doctor Unassigned, No [facility] REFERRAL- 2020-07-01 06:01:00 Doctor Unassigned, No [facility] REQUEST/RESPONSE [facility] Plan of Care Planned Activity Planned Date Details Comments Source Future Scheduled 2023-04-06 Screening for [facility] Test 13:52:36 malignant neoplasm of colon (procedure) [code = 384213111] Future Scheduled 2023-04-06 SHINGLES VACCINES (1 [facility] Test 13:52:36 of 2) [code = SHINGLES VACCINES (1 of 2)] Future Scheduled 2023-04-06 BREAST CANCER [facility] Test 13:52:36 SCREENING [code = BREAST CANCER SCREENING] Future Scheduled 2023-04-06 65+ PNEUMOCOCCAL [facility] Test 13:52:36 VACCINE (1 - PCV) [code = 65+ PNEUMOCOCCAL VACCINE (1 - PCV)] Future Scheduled 2023-04-06 [facility]FLUENZA [facility]ACCINE (#[facility]) [facility] 13:52:36 [code = INFLUENZA VACCINE (#1)] Future Scheduled 2023-04-06 Screening for [facility] Test 13:52:36 malignant neoplasm of colon (procedure) [code = 008835010] Future Scheduled 2023-04-06 Screening for [facility] Test 13:52:36 malignant neoplasm of colon (procedure) [code = 210480726] Future Scheduled 2023-04-06 Screening for [facility] Test 13:52:36 malignant neoplasm of colon (procedure) [code = 928693823] Future Scheduled 2023-04-06 COVID-19 [facility]INE (#[facility] Test 13:52:36 [code = COVID-19 VACCINE (#1)] Future Scheduled 2023-04-06 Screening for [facility] Test 13:52:36 malignant neoplasm of colon (procedure) [code = 420302384] Encounters Start End Encounter Admission Attending Care Care Encounter Source Date/Time Date/Time Type Type Clinicians Facility Department ID 2022-11-10 Outpatient Keyes, STLMLC STLC [id number] Common 07:15:00 Sarika [id number] [facility] 2022-11-09 Outpatient [place], STLC STLC [id number] Common 11:48:00 Sarika 76303 [facility] 2022-07-28 Outpatient Key[place], STLC STLC [id number] Common 10:30:01 Sarika 14311 [facility] 2022-07-27 Outpatient [place], STLMLC STLC [id number] Common 08:34:00 Sarika 92402 [facility] 2022-04-13 Outpatient [place], STLMLC STLC [id number] Common 09:43:01 Sarika 18784 [facility] 2022-04-08 Outpatient [place], STLC STLC [id number] Common 09:21:00 Sarika 06562 [facility] 2022-01-24 Outpatient [place], STLMLC STLC [id number] Common 10:52:01 Sarika [facility] 2022-01-17 Outpatient [place], STLMLC STLMLC [id number] Common 16:32:00 Sarika [facility] 2021-11-22 Outpatient [place], STLMLC STLMLC [id number] Common 09:02:00 Sarika [facility] 2021-11-11 Outpatient [place], STLMLC STLMLC [id number] Common 17:45:00 Sarika [facility] 2021-10-18 Outpatient [place], STLMLC STLMLC [id number] Common 13:20:01 Sarika [facility] 2021-10-15 Outpatient [place], STLMLC STLMLC [id number] Common 09:21:01 Sarika [facility] 2021-07-14 Outpatient [place], STLMLC STLMLC [id number] Common 13:31:00 Sarika [facility] 2021-07-07 Outpatient [place], STLMLC STLMLC [id number] Common 14:27:16 Sarika [facility] 2021-07-07 Outpatient STLMLC STLMLC [id number] Common 14:26:31 56736 [facility] 2021-07-07 Outpatient [place], STLMLC STLMLC [id number] Common 13:07:13 Kenna 73456 [facility] 2021-07-07 Outpatient [place], STLMLC STLMLC [id number] Common 12:49:59 Kenna 21416 [facility] 2021-07-07 Outpatient [place], STLMLC STLMLC [id number] Common 11:54:56 Kenna 16635 [facility] 2021-07-07 Outpatient [place], STLMLC STLMLC [id number] Common 11:41:53 Kenna 51897 [facility] 2021-07-07 Outpatient [place], STLMLC STLMLC [id number] Common 11:32:46 Kenna 64394 [facility] 2023-04-09 2023-04-09 Outpatient [id number] PRIV PRIV [id number] [facility] 00:00:00 00:00:00 Abel [id number] Medic al 2022-12-05 2022-12-05 (TEL) STLMLC STLMLC [id number] Co mmon 00:00:00 00:00:00 [facility] 2022-11-16 2022-11-16 (TEL) STLMLC STLMLC [id number] Co mmon 00:00:00 00:00:00 [facility] 2022-11-09 2022-11-09 (WELLNESS) STLMLC STLMLC [id number] Common 00:00:00 00:00:00 Wellness Spiri t Visit [facility] 2022-10-13 2022-10-13 (TEL) STLMLC STLMLC [id number] Co mmon 00:00:00 00:00:00 [facility] 2022-07-29 2022-07-29 (ESTPTWM) STLMLC STLMLC [id number] Common 00:00:00 00:00:00 Keith saunders PT [facility] 2022-07-13 2022-07-13 (TEL) STLMLC STLMLC [id number] Co mmon 00:00:00 00:00:00 [facility] 2022-05-30 2022-05-30 NON-BILLAB STLMLC STLMLC [id number] Common 00:00:00 00:00:00 LE VISIT Spiri t [facility] 2022-05-17 2022-05-17 (TEL) STLMLC STLMLC [id number] Co mmon 00:00:00 00:00:00 [facility] 2022-05-13 2022-05-13 (TEL) STLMLC STLMLC [id number] Co mmon 00:00:00 00:00:00 [facility] 2022-05-09 2022-05-09 (TEL) STLMLC STLMLC [id number] Co mmon 00:00:00 00:00:00 [facility] 2022-04-26 2022-04-26 NON-BILLAB STLMLC STLMLC [id number] Common 00:00:00 00:00:00 LE VISIT [facility] 2022-04-19 2022-04-19 (TEL) STLMLC STLMLC [id number] Co mmon 00:00:00 00:00:00 [facility] 2022-04-18 2022-04-18 OFFICE STLMLC STLMLC [id number] Co mmon 00:00:00 00:00:00 VISIT [facility] PT - CHI [address] 2022-04-12 2022-04-12 NON-BILLAB STLMLC STLMLC [id number] Common 00:00:00 00:00:00 LE VISIT [facility] 2022-04-07 2022-04-07 (TEL) STLMLC STLMLC [id number] Co mmon 00:00:00 00:00:00 [facility] 2022-04-05 2022-04-05 OFFICE STLMLC STLMLC [id number] Co mmon 00:00:00 00:00:00 VISIT [facility] PT - CHI LEVEL [address] [place] [address] 2022-02-22 2022-02-22 (TEL) STLMLC STLMLC [id number] Co mmon 00:00:00 00:00:00 [facility] 2022-01-28 2022-01-28 (TEL) STLMLC STLMLC [id number] Co mmon 00:00:00 00:00:00 [facility] 2022-01-26 2022-01-26 OFFICE STLMLC STLMLC [id number] Co mmon 00:00:00 00:00:00 VISIT [facility] PT - CHI LEVEL [address] [place] [address] 2022-01-18 2022-01-18 OFFICE STLMLC STLMLC [id number] Co mmon 00:00:00 00:00:00 VISIT Spirit ESTAB PT - CHI LEVEL 4 [facility] 2022-01-17 2022-01-17 (TEL) STLMLC STLMLC [id number] Co mmon 00:00:00 00:00:00 [facility] 2022-01-17 2022-01-17 (TEL) STLMLC STLMLC [id number] Co mmon 00:00:00 00:00:00 [facility] 2021-12-23 2021-12-23 Outpatient MITRA_RUBI NIKOLAI [facility] [address] 03:49:00 03:49:00 SSA 0714 da [facility] 2021-11-24 2021-11-24 (TEL) STLMLC STLMLC [id number] Co mmon 00:00:00 00:00:00 [facility] 2021-11-22 2021-11-22 OFFICE STLMLC STLMLC [id number] Co mmon 00:00:00 00:00:00 VISIT NEW Spir it PT LEVEL 4 [facility] 2021-11-17 2021-11-17 OFFICE STLMLC STLMLC [id number] Co mmon 00:00:00 00:00:00 VISIT Spirit ESTAB PT - CHI LEVEL 3 [facility] 2021-11-11 2021-11-11 (TEL) STLMLC STLMLC [id number] Co mmon 00:00:00 00:00:00 [facility] 2021-10-27 2021-10-27 OFFICE STLMLC STLMLC [id number] Co mmon 00:00:00 00:00:00 VISIT Spirit ESTAB PT - CHI LEVEL 4 [facility] 2021-10-06 2021-10-06 OFFICE STLMLC STLMLC [id number] Co mmon 00:00:00 00:00:00 VISIT Spirit ESTAB PT - CHI LEVEL 4 [facility] 2021-07-23 2021-07-23 OFFICE STLMLC STLMLC [id number] Co mmon 00:00:00 00:00:00 VISIT EST Spir it PT LEVEL 3 [facility] 2021-06-01 2021-06-01 OFFICE STLMLC STLMLC [id number] Co mmon 00:00:00 00:00:00 VISIT [facility] LEVEL 4 [facility] 2021-04-21 2021-04-21 (TEL) STLMLC STLMLC [id number] Co mmon 00:00:00 00:00:00 [facility] 2021-04-14 2021-04-14 Emergency X [facility] ERT [id number] Univers 09:54:00 12:18:00 ARIAN antonyy of [facility] 2021-04-14 2021-04-14 Emergency [facility] [id number] Univers 09:54:00 12:18:00 Arian Aguilar TUPELO [id number] i ty of [place] [id number] [facility] [id number] [facility] [address] 2020-12-17 2020-12-17 Outpatient STLMLC STLMLC [id number] Common 00:00:00 00:00:00 [facility] 2020-11-30 2020-11-30 Outpatient STLMLC STLMLC [id number] Common 00:00:00 00:00:00 [facility] 2020-11-12 2020-11-12 Outpatient STLMLC STLMLC [id number] Common 00:00:00 00:00:00 [facility] 2020-11-06 2020-11-06 Outpatient STLMLC STLMLC [id number] Common 00:00:00 00:00:00 [facility] 2020-10-08 2020-10-08 Outpatient STLMLC STLMLC [id number] Common 00:00:00 00:00:00 [facility] 2020-10-01 2020-10-01 Telephone [facility] [id number] Univers 00:00:00 00:00:00 [facility] [id number] it y of [facility] [id number] [facility] [id number] [place] [address] [place] 2020-09-28 2020-09-28 [facility] [id number] Univers 15:31:36 23:59:00 Encounter Froylan Dial [id number] ity of Surgical [id number] Luis as Specialti [id number] Me dical es 809 [facility] 2020-09-28 2020-09-28 [facility] [id number] Univers 15:31:36 23:59:00 FROYLAN ity [facility] 2020-09-28 2020-09-28 Office [facility] [id number] Univers 15:23:27 15:44:25 Visit Froylan Naidu [facility] [id number] it y of Surgical [id number] Luis as Specialti [id number] Me dical es 198 [facility] 2020-09-17 2020-09-17 Outpatient STLMLC STLC [id number] Common 00:00:00 00:00:00 [facility] 2020-08-17 2020-08-17 Patient [facility] [id number] Univers 00:00:00 00:00:00 [facility] [id number] i ty of [facility] [id number] Skyler MÉNDEZ [id number] [place] dical [address] [place] 2020-07-16 2020-07-16 [facility] [id number] Univers 14:37:52 23:59:00 FROYLAN ithuang [facility] 2020-07-16 2020-07-16 [facility] [id number] Univers 14:37:52 23:59:00 Encounter Froylan Dial [id number] ity of Surgical [id number] Luis as Specialti [id number] [place] dical es 809 [facility] 2020-07-16 2020-07-16 Office [facility] [id number] Univers 14:11:10 15:02:29 Visit [facility] [id number] it y of Surgical [id number] Luis as Specialti [id number] [place] dical [place] 198 [facility] 2020-07-16 2020-07-16 Orders Doctor BALA [id number] Univers 00:00:00 00:00:00 Only Unassigned, NELLY [id number] ity of [place] [facility] [id number] Luis as [phone] [address] 2020-07-13 2020-07-13 Outpatient Tanisha BOWENS [facility] [id number] [facility] 14:15:00 14:15:00 EVA ity [facility] 2020-07-01 2020-07-01 Orders Doctor BALA [id number] [facility] 00:00:00 00:00:00 Only Unassigned, NELLY [id number] ity of [place] [facility] [id number] Luis as [phone] [address] 2020-06-24 2020-06-24 Outpatient [facility]ML[facility] ST[facility] [id number] Common 00:00:00 00:00:00 [facility] 2020-06-16 2020-06-16 Outpatient STLMLC ST[facility] [id number] Common 00:00:00 00:00:00 [facility] 2020-05-28 2020-05-28 Outpatient STLMLC STL[facility] [id number] Common 00:00:00 00:00:00 [facility] 2020-05-27 2020-05-27 Outpatient STLMLC STLMLC [id number] Common 00:00:00 00:00:00 [facility] 2020-05-13 2020-05-13 Outpatient STLMLC STLMLC [id number] Common 00:00:00 00:00:00 [facility] 2020-02-12 2020-02-12 [facility] [id number] Common 09:40:00 09:40:00 [facility] 2020-01-06 2020-01-06 [facility] [id number] Common 14:20:00 14:20:[address] [facility] 2019-11-19 2019-11-19 [facility] [id number] Common 16:42:00 16:42:[address] [facility] 2019-11-12 2019-11-12 [facility] [id number] Common 08:40:00 08:40:[address] [facility] 2019-02-01 2019-02-01 [facility] [id number] Common 10:20:00 10:20:[address] [facility] 2018-12-17 2018-12-17 [facility] [id number] Common 10:40:00 10:40:[address] [facility] 2018-09-28 2018-09-28 [facility] [id number] Common 10:45:00 10:45:[address] [facility] 2018-08-10 2018-08-10 [facility] [id number] Common 09:00:00 09:00:[address] [facility] Results Test Description Test Time Test Comments Results Result Comments Source CBC W/AUTO DIFF 2022-11-09 00:00:00 Test Item Value Reference Range Interpretation Comme nts NUCLEATED RBCS (test code 0.0 /100 WBC'S See_Comment [Automated message] The = 17946-9) system which ge nerated this result transmit rich reference range: 0.0 /100 WBC'S. The reference range was not used to interpret th is result as normal/abnormal . ABSOLUTE EOSINOPHILS (test 0.03 K/UL See_Comment [Automated message] The code = 85824-6) system which generated this result transmit rich reference range: 0.00-0.5 0 K/UL. The reference range was not used to interpret th is result as normal/abnormal . ABSOLUTE LYMPHOCYTES (test 1.49 K/UL See_Comment [Automated message] The code = 20586-7) system which generated this result transmit rich reference range: 1.00-4.0 0 K/UL. The reference range was not used to interpret th is result as normal/abnormal . ABSOLUTE MONOCYTES (test 0.26 K/UL See_Comment [A utomated message] The code = 44308-3) system which generated this result transmit rcih reference range: 0.20-1.0 0 K/UL. The reference range was not used to interpret th is result as normal/abnormal . ABSOLUTE NEUTROPHILS (test 2.28 K/UL See_Comment [Automated message] The code = 61916-8) system which generated this result transmit rich reference range: 1.50-7.5 0 K/UL. The reference range was not used to interpret th is result as normal/abnormal . BASOPHILS (test code = 0.5 % 30074-8) EOSINOPHILS (test code = 0.7 % 53613-0) HEMATOCRIT (test code = 33.6 % See_Comment L [Au tomated message] The 10170-5) system which [employer] nerated this result transmit rich reference range: 34.0-45. 0 %. The reference range was not used to interpret th is result as normal/abnormal . HEMOGLOBIN (test code = 11.7 G/DL See_Comment [Au tomated message] The 8-) system which [employer] nerated this result transmit rich reference range: 11.5-15. 5 G/DL. The reference range was not used to interpret th is result as normal/abnormal . LYMPHOCYTES (test code = 36.1 % 64380-4) MCH (test code = 98896-7) 32.0 PG See_Comment [ Automated message] The system which ge nerated this result transmit rich reference range: 25.0-33. 0 PG. The reference range was not used to interpret th is result as normal/abnormal . MCHC (test code = 54065-1) 34.8 G/DL See_Comment [Automated message] The system which ge nerated this result transmit rich reference range: 31.0-36. 0 G/DL. The reference range was not used to interpret th is result as normal/abnormal . MCV (test code = 99180-3) 91.8 fL See_Comment [ Automated message] The system which [employer] nerated this result transmit rich reference range: 80.0-99. 0 fL. The reference range was not used to interpret th is result as normal/abnormal . MONOCYTES (test code = 6.3 % 10509-7) NEUTROPHILS (test code = 55.2 % 37962-6) PLATELET COUNT (test code 250 K/UL See_Comment [ Automated message] The = 23449-6) system which [employer] nerated this result transmit rich reference range: 130-400 K/UL. The reference range was not used to interpret th is result as normal/abnormal . RBC (test code = 04343-7) 3.66 M/UL See_Comment L [ Automated message] The system which [employer] nerated this result transmit rich reference range: 3.80-5.4 0 M/UL. The reference range was not used to interpret th is result as normal/abnormal . RDW (test code = 08680-2) 14.4 % See_Comment [ Automated message] The system which [employer] nerated this result transmit rich reference range: 11.5-15. 0 %. The reference range was not used to interpret th is result as normal/abnormal . WBC (test code = 87647-0) 4.1 K/UL See_Comment [ Automated message] The system which [employer] nerated this result transmit rich reference range: 3.5-11.0 K/UL. The reference range was not used to interpret th is result as normal/abnormal . HEMOGLOBIN [id number] 00:00:00 Test Item Value Reference Range Interpretation Comments HEMOGLOBIN A1c (test 6.6 % See_Comment H [Autom ated message] The code = 4548-4) system which generated this result tra nsmitted reference range : 4.2-5.6 %. The referenc e range was not used to interpret this result as normal/abnormal . LIPID PANEL WITH REFLEX DIRECT [id number] 00:00:00 Test Item Value Reference Range Interpretation Comments CALC LDL CHOL (test 136 MG/DL See_Comment H [Automa rich message] code = 42874-2) The system [facility] generated this result transmit rich reference range : <100 MG/DL. The reference range was not used to interpret this result as normal/abnormal . CHOLESTEROL (test code 228 MG/DL See_Comment H [Aut omated message] = 2093-3) The system [facility] generated this result transmit rich reference range : <200 MG/DL. The reference range was not used to interpret this result as normal/abnormal . HDL CHOLESTEROL (test 69 MG/DL See_Comment [Auto mated message] code = 2085-9) The system [facility] generated this result transmit rich reference range : >39 MG/DL. The refe rence range was not u sed to interpret th is result as normal/abnormal . RISK RATIO LDL/HDL 1.97 RATIO See_Comment [Automat ed message] (test code = 53170-9) The sy stem which generated this result transmit rich reference range : <3.22 RATIO. Th e reference range was not used to interpret this result as normal/abnormal . TRIGLYCERIDES (test 123 MG/DL See_Comment [Automa rich message] code = 2571-8) The system [facility] generated this result transmit rich reference range : <150 MG/DL. The reference range was not used to interpret this result as normal/abnormal . ALBUMIN/CREATININE RATIO, RANDOM [id number] 00:00:00 Test Item Value Reference Range Interpretation Comments ALBUMIN, URINE, 8.9 MG/DL NOT ESTAB MG/DL RANDOM (test code = 32770-3) CALC ALBUMIN/CREAT, 68 MG/G See_Comment H [Automa rich message] RND (test code = The system which 34279-2) generated this result transmitted ref erence range: <30 MG/G . The reference range was not used to interpr et this result as normal/abnormal . CREATININE, URINE, 130.7 MG/DL NOT ESTAB MG/DL CONC. (test code = 2161-8) COMPREHENSIVE METABOLIC [id number] 00:00:00 Test Item Value Reference Range Interpretation Comments ALBUMIN (test code = 4.8 G/DL See_Comment [Autom ated message] 1751-7) The system [facility] generated this result transmit rich reference range : 3.5-5.2 G/DL. T he reference range was not used to interpret this result as normal/abnormal . ALKALINE PHOSPHATASE 142 U/L See_Comment [Autom ated message] (test code = 6768-6) The sys tem which generated this result transmit rich reference range : 40-142 U/L. The reference range was not used to interpret this result as normal/abnormal . BILIRUBIN, TOTAL 0.4 MG/DL See_Comment [Automated message] (test code = 1975-2) The [facility] tem which generated this result transmit rich reference range : <=1.2 MG/DL. Th e reference range was not used to interpret this result as normal/abnormal . BUN (test code = 15 MG/DL See_Comment [Automated message] 3094-0) The system [facility] generated this result transmit rich reference range : 8-23 MG/DL. The reference range was not used to interpret this result as normal/abnormal . CALCIUM (test code = 10.3 MG/DL See_Comment [Autom ated message] 23190-4) The system [facility] generated this result transmit rich reference range : 8.5-10.5 MG/DL. The reference range was not used to interpret this result as normal/abnormal . CALC A/G RATIO (test 2.2 RATIO See_Comment [Autom ated message] code = 1759-0) The system [facility] generated this result transmit rich reference range : 1.0-2.6 RATIO. The reference range was not used to interpret this result as normal/abnormal . CALC BUN/CREAT (test 25 RATIO See_Comment [Autom ated message] code = 3097-3) The system [facility] generated this result transmit rich reference range : 6-28 RATIO. The reference range was not used to interpret this result as normal/abnormal . CALC GLOBULIN (test 2.2 G/DL See_Comment [Automa rich message] code = 71638-9) The system [facility] generated this result transmit rich reference range : 1.9-3.7 G/DL. T he reference range was not used to interpret this result as normal/abnormal . CARBON DIOXIDE (test 26 MEQ/L See_Comment [Autom ated message] code = 1963-8) The system [facility] generated this result transmit rich reference range : 19-31 MEQ/L. Th e reference range was not used to interpret this result as normal/abnormal . CHLORIDE (test code 103 MEQ/L See_Comment [Automa rich message] = 2074-0) The system [facility] generated this result transmit rich reference range : 95-107 MEQ/L. T he reference range was not used to interpret this result as normal/abnormal . CREATININE (test 0.60 MG/DL See_Comment [Automated message] code = 2160-0) The system [employer] generated this result transmit rich reference range : 0.60-1.30 MG/DL . The reference range was not used to interpret this result as normal/abnormal . eGFR (2020 CKD-EPI) 98 ML/MIN/1.73 See_Comment [Auto mated message] (test code = The system [employer] 96709-0) generated this result transmit rich reference range : >60 ML/MIN/1.73. Th e reference range was not used to interpret this result as normal/abnormal . GLUCOSE (test code = 101 MG/DL See_Comment H [Autom ated message] 1558-6) The system [employer] generated this result transmit rich reference range : 70-99 MG/DL. Th e reference range was not used to interpret this result as normal/abnormal . POTASSIUM (test code 3.8 MEQ/L See_Comment [Autom ated message] = 2823-3) The system [employer] generated this result transmit rich reference range : 3.5-5.4 MEQ/L. The reference range was not used to interpret this result as normal/abnormal . PROTEIN, TOTAL (test 7.0 G/DL See_Comment [Autom ated message] code = 2885-2) The system [employer] generated this result transmit rich reference range : 6.1-8.3 G/DL. T he reference range was not used to interpret this result as normal/abnormal . AST (test code = 30 U/L See_Comment [Automated message] 1920-8) The system [employer] generated this result transmit rich reference range : 9-40 U/L. The reference range was not used to interpret this result as normal/abnormal . ALT (test code = 15 U/L See_Comment [Automated message] 1742-6) The system [employer] generated this result transmit rich reference range : 5-40 U/L. The reference range was not used to interpret this result as normal/abnormal . SODIUM (test code = 143 MEQ/L See_Comment [Automa rich message] 4141-2) The system [employer] generated this result transmit rich reference range : 133-146 MEQ/L. The reference range was not used to interpret this result as normal/abnormal . HEMOGLOBIN [id number] 00:00:00 Test Item Value Reference Range Interpretation Comments A1C (test code = 4548-4) 6.3 XR SHOULDER <2 VW [id number] 21:04:46No fractures or dislocations [facility]
[2023-05-15 17:12] LABS: Absolute Lymphocytes (CBC) 0.9 K/uL (0.7-4.9); Hematocrit 28.8 % (36.0-45.0); Lymphocytes % 36.5 % (15.3-44.8); MCV 94.1 fL (80-100); MPV 8.2 fL (7.6-11.3); Platelets 136 thou/uL (152-406); RBC Red Blood Cell Count 3.06 M/uL (3.86-4.86)
[2023-05-15 17:19] LABS: Specific Gravity 1.006 (1.005-1.030); Urine Bacteria None Seen /HPF (<20); Urine Bilirubin NEGATIVE (Negative); Urine Blood Negative (Negative); Urine Clarity Turbid (Clear); Urine Color Light-Yellow (Yellow); Urine Crystals Unidentified Few /HPF (None Seen); Urine Glucose NEGATIVE (Negative); Urine Protein NEGATIVE (Negative); Urine RBC <5 /HPF (None Seen); Urine Urobilinogen 1+ (Normal); Urine pH 5.5 (5.0-7.0)
[2023-05-15] MEDS ORDERED: NA CHLORIDE 0.9% 1,000 ML ONE (17:21)
[2023-05-15 17:31] LABS: Albumin 2.9 g/dL (3.4-5.0); Bilirubin Direct 0.4 mg/dL (0-0.2); Bilirubin Indirect, Calculated 0.4 mg/dL (0.2-0.8); Bilirubin Total 0.8 mg/dL (0.2-1.0); Magnesium 1.6 mg/dL (1.6-2.4); Potassium 3.7 mEq/L (3.5-5.1); Protein, Total 6.4 g/dL (6.4-8.2); Troponin High Sensitivity 8.1 pg/mL (<58.9)
[2023-05-15 17:56] LABS: Protime INR 1.24
--- NOTE | 2023-05-15 18:55 | RAD REPORT ---
EXAM DESCRIPTION: CT - Chest Abdomen Pelvis W Cont - 05/15/2023 6:12 pm CLINICAL HISTORY: Chest and abdomen pain. h/o breast cancer;Chest pain TECHNIQUE: Approximately 100 mL nonionic IV contrast was administered to the patient. All CT scans are performed using dose optimization technique as appropriate and may include automated exposure control or mA/KV adjustment according to patient size. FINDINGS: No pulmonary nodule, mass or infiltrate is appreciated.No pleural or pericardial effusion. A few mildly prominent mediastinal lymph nodes are present, largest 6 mm.Postsurgical changes are pre sent right axilla and right lateral breast. Mildly prominent left axillary lymph node noted measuring to 7 mm. Multiple rim enhancing lesions are present, these are estimated to be between 5-10 in number, largest superior or right lobe liver measuring 12 mm. These are likely metastatic deposits. Spleen is normal sized. Pancreas is unremarkable. Cholecystectomy. Both adrenal glands are normal. Mild free fluid is seen in the pelvis. Mild free fluid is seen in the upper abdomen. Mild left-sided hydronephrosis is seen. The greater omentum shows somewhat increased soft tissue density. No definiti ve soft tissue implants seen. Numerous sclerotic lesions are seen throughout the axial skeleton. IMPRESSION: Extensive skeletal metastatic lesions are noted throughout the axial skeleton.Numerous h epatic metastatic lesions also suspected. This could be related to distant recurrence of breast carci noma. Mild free fluid is seen in the abdomen and pelvis with the prominent appearance of the greater omenta l soft tissues.
--- NOTE | 2023-05-15 19:18 | ER ---
Nurse's Notes [facility] Name: Moriah Kiran Age: 68 yrs Sex: Female : 1955 Arrival Date: 05/15/2023 Time: 16:21 Bed 11 Private MD: Diagnosis: Recurrent metastatic cancer Presentation: 05/15 16:29 Chief complaint: Patient states: left sided chest pain X 2 weeks, feels like throbbing iw pain, also has pain in her lower abdomen and feels like vomiting, also has swelling on left side of chest. Coronavirus screen: At this time, the client does not indicate any symptoms associated with coronavirus-19. Ebola Screen: Patient negative for fever greater than or equal to 101.5 degrees Fahrenheit, and additional compatible Ebola Virus Disease symptoms Patient denies exposure to infectious person. Patient denies travel to an Ebola-affected area in the 21 days before illness onset. No symptoms or risks identified at this time. Initial Sepsis Screen: Does the patient meet any 2 criteria? No. Patient's initial sepsis screen is negative. Does the patient have a suspected source of infection? No. Patient's initial sepsis screen is negative. Risk Assessment: Do you want to hurt yourself or someone else? Patient reports no desire to harm self or others. Onset of symptoms was May 01, 2023. 16:29 Method Of Arrival: Ambulatory iw 16:29 Acuity: SALVADOR 3 iw Historical: - Allergies: 16:32 No Known Allergies; iw - PMHx: 16:32 Depression; Diabetes - NIDDM; Hyperlipidemia; Hypertension; beast cancer; iw - PSHx: 16:32 rotator cuff; hysterectomy; bladder suspension; lumpectomy and breast reconstruction; iw - Immunization history:: Adult Immunizations unknown. - Social history:: Smoking status: unknown. Screenin:03 [facility] ED Fall Risk Assessment (Adult) History of falling in the last 3 months, ld1 including since admission No falls in past 3 months (0 pts). Abuse screen: Denies threats or abuse. Denies injuries from another. Nutritional screening: No deficits noted. Tuberculosis screening: No symptoms or risk factors identified. Assessment: 17:03 General: Appears in no apparent distress. comfortable, Behavior is calm, cooperative, ld1 appropriate for age. Pain: Complains of pain in chest and abdomen Pain does not radiate. Pain currently is 8 out of 10 on a pain scale. Quality of pain is described as throbbing, Pain began 1 day ago. Is intermittent. Neuro: Level of Consciousness is awake, alert, obeys commands, Oriented to person, place, time, situation. Cardiovascular: Capillary refill < 3 seconds Patient's skin is warm and dry. Rhythm is sinus tachycardia. Respiratory: Airway is patent Respiratory effort is even, unlabored. GI: Abdomen is flat, non-distended, Reports lower abdominal pain, upper abdominal pain. : No signs and/or symptoms were reported regarding the genitourinary system. EENT: No signs and/or symptoms were reported regarding the EENT system. Derm: No signs and/or symptoms reported regarding the dermatologic system. Musculoskeletal: No signs and/or symptoms reported regarding the musculoskeletal system. 17:57 Reassessment: Patient appears in no apparent distress at this time. No changes from ld1 previously documented assessment. Patient and/or family updated on plan of care and expected duration. Pain level reassessed. Patient is alert, oriented x 3, equal unlabored respirations, skin warm/dry/pink. Vital Signs: 16:29 BP 137 / 84; Pulse 115; Resp 18; Temp 98.4; Pulse Ox 99% on R/A; Pain 8/10; iw 17:03 BP 119 / 78; Pulse 104; Resp 18; Pulse Ox 97% on R/A; Weight 63.05 kg; Height 5 ft. 1 ld1 in. ; Pain 8/10; 17:57 BP 130 / 72; Pulse 95; Resp 18; Pulse Ox 100% on R/A; ld1 18:38 BP 136 / 77; Pulse 98; Resp 18; Pulse Ox 100% on R/A; ld1 19:55 BP 155 / 84; Pulse 102; Resp 18; Pulse Ox 100% on R/A; cm10 17:03 Body Mass Index 26.26 (63.05 kg, 154.94 cm) ld1 16:29 Pain Scale: Adult iw 17:03 Pain Scale: Adult ld1 ED Course: 16:24 Patient arrived in ED. im 16:24 Ginger العلي MD is Attending Physician. sp3 16:32 Triage completed. iw 16:34 Arm band placed on. iw 16:35 Bouchra Mccrary, ELVIRA is Primary Nurse. cm10 17:01 Thea Solis, RN is Primary Nurse. ld1 17:03 Patient has correct armband on for positive identification. Placed in gown. Bed in low ld1 position. Call light in reach. Side rails up X2. hospital monitor on. Pulse ox on. NIBP on. Door closed. Noise minimized. Warm blanket given. 17:03 Urinalysis w/ reflexes Sent. ld1 17:03 No provider procedures requiring assistance completed. Inserted saline lock: 20 gauge ld1 in left antecubital area, using aseptic technique. Blood collected. Patient maintains SpO2 saturation greater than 95% on room air. 18:13 CT Chest, Abdomen, Pelvis - W/Contrast: IV contrast only In Process Unspecified. EDMS 19:56 Provided Education on: Follow up instructions. . cm10 19:56 IV discontinued, intact, bleeding controlled, No redness/swelling at site. Pressure cm10 dressing applied. Administered Medications: 17:11 Drug: NS 0.9% IV 1000 ml IV at 1 bolus Per protocol; 1000 mL bolus Route: IV; Rate: 1 ld1 bolus; Site: left antecubital; 19:48 Follow up: Response: No adverse reaction; IV Status: Completed infusion; IV Intake: cm10 1000ml Medication: 17:03 VIS not applicable for this client. ld1 Intake: 19:48 IV: 1000ml; Total: 1000ml. cm10 Outcome: 19:17 Discharge ordered by . sp3 19:56 Discharged to home ambulatory, with family, cm10 19:56 Condition: good 19:56 Discharge instructions given to patient, Instructed on discharge instructions, follow up and referral plans. Demonstrated understanding of instructions, follow-up care, 19:56 Patient left the ED. cm10 Signatures: Dispatcher [employer] EDIA Gillian Henning RN RN iw Thea Solis, RN RN ld1 Ginger العلي MD MD sp3 Mary Ordonez Clarissa, RN RN cm10 Corrections: (The following items were deleted from the chart) 16:33 16:32 PMHx: Cancer; iw iw 16:33 16:32 PMHx: Cancer; [facility]
--- NOTE | 2023-05-15 19:18 | EDPHYS ---
Physician Documentation [facility] Name: Moriah Kiran Age: 68 yrs Sex: Female : 1955 Arrival Date: 05/15/2023 Time: 16:21 Bed 11 Private MD: ED Physician Ginger العلي HPI: 05/15 16:53 This 68 yrs old Female presents to ER via Ambulatory with complaints of Chest sp3 Pain, Abdominal Pain. 16:53 68-year-old female with history of diabetes, hyperlipidemia, hypertension, prior breast sp3 cancer in 2011 stage IV now in remission with lumpectomy and chemotherapy with no evidence of disease and no active treatment now presents to the ED with chief complaint 2 weeks of left-sided chest pain rating down into the abdomen as well. Patient states that the pain is right where her Chemo-Port was many years ago on the left side. She denies any fever, URI symptoms, cough, congestion, shortness of breath, back pain, vomiting, diarrhea, rash, weight loss, fevers, night sweats, or any other signs or symptoms on ROS at this time.. Historical: - Allergies: 16:32 No Known Allergies; iw - PMHx: 16:32 Depression; Diabetes - NIDDM; Hyperlipidemia; Hypertension; beast cancer; iw - PSHx: 16:32 rotator cuff; hysterectomy; bladder suspension; lumpectomy and breast reconstruction; iw - Immunization history:: Adult Immunizations unknown. - Social history:: Smoking status: unknown. ROS: 16:54 Constitutional: Negative for fever, chills, and weight loss, Eyes: Negative for injury, sp3 pain, redness, and discharge, ENT: Negative for injury, pain, and discharge, Neck: Negative for injury, pain, and swelling, Respiratory: Negative for shortness of breath, cough, wheezing, and pleuritic chest pain, Back: Negative for injury and pain, : Negative for injury, bleeding, discharge, and swelling, MS/Extremity: Negative for injury and deformity, Neuro: Negative for headache, weakness, numbness, tingling, and seizure, Psych: Negative for depression, anxiety, suicide ideation, homicidal ideation, and hallucinations, Allergy/Immunology: Negative for hives, rash, and allergies, Endocrine: Negative for neck swelling, polydipsia, polyuria, polyphagia, and marked weight changes, Hematologic/Lymphatic: Negative for swollen nodes, abnormal bleeding, and unusual bruising, 16:54 All other systems are negative, Exam: 16:54 Constitutional: This is a well developed, well nourished patient who is awake, alert, sp3 and in no acute distress. Head/Face: Normocephalic, atraumatic. Eyes: Pupils equal round and reactive to light, extra-ocular motions intact. Lids and lashes normal. Conjunctiva and sclera are non-icteric and not injected. Cornea within normal limits. Periorbital areas with no swelling, redness, or edema. ENT: Nares patent. No nasal discharge, no septal abnormalities noted. External auditory canals are clear. Oropharynx with no redness, swelling, or masses, exudates, or evidence of obstruction, uvula midline. Mucous membranes moist. Neck: Trachea midline, no thyromegaly or masses palpated, and no cervical lymphadenopathy. Supple, full range of motion without nuchal rigidity, or vertebral point tenderness. No Meningismus. Chest/axilla: Normal chest wall appearance and motion. Nontender with no deformity. No lesions are appreciated. Cardiovascular: Regular rate and rhythm with a normal S1 and S2. No gallops, murmurs, or rubs. Normal PMI, no JVD. No pulse deficits. Respiratory: Lungs have equal breath sounds bilaterally, clear to auscultation and percussion. No rales, rhonchi or wheezes noted. No increased work of breathing, no retractions or nasal flaring. Skin: Warm, dry with normal turgor. Normal color with no rashes, no lesions, and no evidence of cellulitis. MS/ Extremity: Pulses equal, no cyanosis. Neurovascular intact. Full, normal range of motion. Neuro: Awake and alert, GCS 15, oriented to person, place, time, and situation. Cranial nerves II-XII grossly intact. Motor strength 5/5 in all extremities. Sensory grossly intact. Cerebellar exam normal. Normal gait. Psych: Awake, alert, with orientation to person, place and time. Behavior, mood, and affect are within normal limits. 16:54 Abdomen/GI: Mild diffuse abdominal pain without peritoneal signs, rebound or guarding., 16:56 ECG was reviewed by the Attending Physician. EKG demonstrates sinus tachycardia at 104 sp3 bpm with normal intervals, normal QRS, leftward axis, nonspecific diffuse ST/T changes without evidence of acute ischemia. Vital Signs: 16:29 BP 137 / 84; Pulse 115; Resp 18; Temp 98.4; Pulse Ox 99% on R/A; Pain 8/10; iw 17:03 BP 119 / 78; Pulse 104; Resp 18; Pulse Ox 97% on R/A; Weight 63.05 kg; Height 5 ft. 1 ld1 in. ; Pain 8/10; 17:57 BP 130 / 72; Pulse 95; Resp 18; Pulse Ox 100% on R/A; ld1 18:38 BP 136 / 77; Pulse 98; Resp 18; Pulse Ox 100% on R/A; ld1 19:55 BP 155 / 84; Pulse 102; Resp 18; Pulse Ox 100% on R/A; cm10 17:03 Body Mass Index 26.26 (63.05 kg, 154.94 cm) ld1 16:29 Pain Scale: Adult iw 17:03 Pain Scale: Adult ld1 MDM: 16:42 Patient medically screened. sp3 16:54 Data reviewed: vital signs, nurses notes, lab test result(s), EKG, radiologic studies. sp3 ED course: 68-year-old female with chest pain and prior breast cancer now presents with chest and abdominal pain. Differential diagnosis includes acute coronary syndrome, cancer Resurgence, musculoskeletal pain, biliary pathology, gastric enteritis, GERD, among others. Work-up will include EKG, laboratory values and CT scan of the chest abdomen and pelvis with IV contrast. Disposition pending work-up and patient course.. 19:16 ED course: CT demonstrates extensive recurrence of metastatic disease throughout bones sp3 and liver. I have gone over all of these results with both patient and her daughter. Patient will get a copy of her laboratory work as well as her disc and report. She has an oncologist at [facility] that she will follow-up with as well as her PCP.. 12 16:49 Order name: Basic Metabolic Panel; Complete Time: 17:59 sp3 05/15 16:49 Order name: CBC with Diff sp3 05/15 16:49 Order name: LFT's; Complete Time: 17:59 sp3 05/15 16:49 Order name: Magnesium; Complete Time: 17:59 sp3 05/15 16:49 Order name: NT PRO-BNP; Complete Time: 17:59 sp3 12/ 16:49 Order name: PT-INR; Complete Time: 17:59 sp3 05/15 16:49 Order name: Troponin HS; Complete Time: 17:59 sp3 05/15 17:01 Order name: Urinalysis w/ reflexes; Complete Time: 17:59 ld1 / 16:49 Order name: CT Chest, Abdomen, Pelvis - W/Contrast: IV contrast only; Complete Time: sp3 18:59 05/15 16:49 Order name: EKG; Complete Time: 16:49 sp3 05/15 16:49 Order name: Cardiac monitoring; Complete Time: 17:02 sp3 05/15 16:49 Order name: EKG - Nurse/Tech; Complete Time: 17:02 sp3 05/15 16:49 Order name: IV Saline Lock; Complete Time: 17:02 sp3 05/15 16:49 Order name: Labs collected and sent; Complete Time: 17:02 sp3 05/15 16:49 Order name: O2 Per Protocol; Complete Time: 17:02 sp3 05/15 16:49 Order name: O2 Sat Monitoring; Complete Time: 17:03 sp3 Administered Medications: 17:11 Drug: NS 0.9% IV 1000 ml IV at 1 bolus Per protocol; 1000 mL bolus Route: IV; Rate: 1 ld1 bolus; Site: left antecubital; 19:48 Follow up: Response: No adverse reaction; IV Status: Completed infusion; IV Intake: cm10 1000ml Disposition Summary: 05/15/23 19:17 Discharge Ordered Notes: Location: Home sp3 Condition: Stable sp3 Diagnosis - Recurrent metastatic cancer sp3 Followup: sp3 - With: Private Physician - When: Upon discharge from the Emergency Department - Reason: Continuance of care Discharge Instructions: - Discharge Summary Sheet sp3 - Cancer of Unknown Primary sp3 Forms: - Medication Reconciliation Form sp3 - Thank You Letter sp3 - Antibiotic Education sp3 - Prescription Opioid Use sp3 - Patient Portal Instructions sp3 - Leadership Thank You Letter sp3 Signatures: Dispatcher [employer] Gillian Trujillo RN RN iw Thea Solis RN RN ld1 Ginger العلي MD MD sp3 Bouchra Mccrary RN RN cm10 Corrections: (The following items were deleted from the chart) 16:33 16:32 PMHx: Cancer; iw iw 16:33 16:32 PMHx: Cancer; iw iw
[2023-05-15 20:05] VITALS: TEMP 98.4
[2023-05-15 20:07] VITALS: O2SAT 100
[2023-05-15 20:09] VITALS: BP 155/84
[2023-05-15 20:12] LABS: Blood Morphology Comment NOT SEEN (NOT SEEN); Platelet Estimate DECR; White Blood Cell Scan OK (OK)
--- NOTE | 2023-05-16 13:28 | EKG ---
Test Date: 2023-05-15 Test Time: 16:52:42 Tile Mechanic Helper: Evangelista SI MEASUREMENT RESULTS: Intervals: Rate: 104 HI: 130 QRSD: 82 QT: 334 QTc: 439 [place]: P: 71 HI: 130 QRS: -22 T: 7 INTERPRETIVE STATEMENTS: Sinus tachycardia Otherwise normal ECG Compared to ECG 04/05/2022 11:11:46 Sinus rhythm no longer present Electronically Signed On 05-16-23 13:26:25 REAL ESTATE INSPECTOR by Sergo Gomez
== END 2023-05-15 19:56 | disposition home or self-care (01) ==
LOC: ER 16:21
DX: C79.81 Secondary malignant neoplasm of breast (principal); E11.9 Type 2 diabetes mellitus without complications; I10 Essential (primary) hypertension
CPT/HCPCS: 96361; 93005; 85025; 81001; 80048; 36415; 83735; 85610; 80076; 84484; 83880; 71260; 74177; 96360; 99285; Q9967; J7030

== ENCOUNTER → 2023-06-24 | Emergency (ER) | payer BC, OTHER ==
[~2023-06-24] MED LIST: HYDROCODONE/APAP 10/325 TAB ONE; NA CHLORIDE 0.9% 500 ML ONE; ONDANSETRON 4 MG (ODT) TAB ONE; methocarbamoL 750 MG TAB ONE
--- OUTSIDE RECORDS SUMMARY | 2023-06-24 19:42 | XMS REPORT | Clinical Summary ---
Author Name Unknown Organization [facility] Address [address] [place] [address] Care Team Providers Care Facilities Painter Name Role Phone Unavailable Primary Care Provider Unavailabl e Encounters Date Type Department Care Team Description 06/21/2023 Lab Requisition [facility] Leighton Alvares MD Gomez, Mariangela, MD after 06/24/2022 Social History Tobacco Use Types Packs/Day Years Used Date Smoking Tobacco: Never Assessed Sex and Gender Information Value Date Recorded Sex Assigned at Not on file Gender Identity Not on file Sexual Orientation Not on file Plan of Treatment Not on file
[2023-06-24 21:45] LABS: Absolute Lymphocytes (CBC) 1.4 K/uL (0.7-4.9); Hematocrit 32.7 % (36.0-45.0); Lymphocytes % 29.6 % (15.3-44.8); MCV 102.2 fL (80-100); MPV 9.1 fL (7.6-11.3); Platelets 135 thou/uL (152-406)
[2023-06-24 21:53] LABS: Protime INR 1.37
--- NOTE | 2023-06-24 22:04 | RAD REPORT ---
EXAM DESCRIPTION: CT - Head Brain Wo Cont - 06/24/2023 9:39 pm CLINICAL HISTORY: Alteration of awareness/confusion COMPARISON: 2017 TECHNIQUE: Computed axial tomography of the head was obtained. IV contrast was not requested. All CT scans are performed using dose optimization technique as appropriate and may include automated exposure control or mA/KV adjustment according to patient size. FINDINGS: An intracranial bleed is not seen The ventricles are normal in caliber No extra-axial fluid collection is noted. Mild low-density within periventricular, deep subcortical white matter probably ischemic changes seco ndary to small vessel disease Multiple lytic lesions within the skull Fluid within the sinuses/ mastoids is not seen. IMPRESSION: Multiple lytic lesions within the skull consistent with metastases
[2023-06-24 22:16] LABS: Platelet Estimate DECR
[2023-06-24 22:17] LABS: Anisocytosis 1+; Blood Morphology Comment NOTED (NOT SEEN)
--- NOTE | 2023-06-24 22:27 | RAD REPORT ---
EXAM DESCRIPTION: Yfn Single View06/24/2023 9:58 pm CLINICAL HISTORY: Chest pain COMPARISON: June 13, 2023 FINDINGS: The lungs appear clear of acute infiltrate. The heart is normal size IMPRESSION: No acute abnormalities displayed
[2023-06-24 22:44] LABS: Specific Gravity 1.016 (1.005-1.030); Urine Bacteria None Seen /HPF (<20); Urine Bilirubin NEGATIVE (Negative); Urine Blood Negative (Negative); Urine Clarity Turbid (Clear); Urine Color Yellow (Yellow); Urine Crystals Unidentified Few /HPF (None Seen); Urine Glucose NEGATIVE (Negative); Urine Mucus Slight /HPF (None Seen); Urine Protein NEGATIVE (Negative); Urine RBC <5 /HPF (None Seen); Urine Urobilinogen 2+ (Normal); Urine WBC Clump Rare /HPF (None Seen)
[2023-06-25 00:42] LABS: Albumin 2.3 g/dL (3.4-5.0); Bilirubin Total 1.3 mg/dL (0.2-1.0); Potassium 4.6 mEq/L (3.5-5.1); Protein, Total 6.1 g/dL (6.4-8.2); Troponin High Sensitivity 8.4 pg/mL (<58.9)
--- NOTE | 2023-06-25 03:08 | EDPHYS ---
Physician Documentation [facility] Name: Moriah Kiran Age: 68 yrs Sex: Female : 1955 Arrival Date: 06/24/2023 Time: 19:39 Bed 20 Private MD: ED Physician Rafael Pierce HPI: 06/24 21:00 This 68 yrs old Female presents to ER via Wheelchair with complaints of cp Slurred Speech, Vomiting, not eating. 21:00 The patient presents with decreased mental status. cp 21:00 Onset: The symptoms/episode began/occurred 4 day(s) ago. Possible causes: PMHX cp significant for stage 4 breast cancer. Associated signs and symptoms: Pertinent positives: confusion, vomiting, weakness, abdominal distension. Current symptoms: In the emergency department the patient's symptoms are unchanged from the initial presentation, despite home interventions. Patient's baseline: Neuro: orientated to person, Motor: no focal deficits, Ambulation: walks without assistance, Speech: slow. 21:00 Daughter reports patient is not currently being treated for cancer. Oncologist is DR linda Graham and patient has appointment later this month for f/u. Historical: - Allergies: 20:00 No Known Allergies; nj1 - PMHx: 20:00 beast cancer; Cancer; Cancer; Depression; Hyperlipidemia; Hypertension; Cancer; nj1 20:01 Diabetes mellitus; nj1 - Immunization history:: Client reports receiving the 2nd dose of the Covid vaccine. - Social history:: Smoking status: Patient reports the use of cigarette tobacco products, denies chronic smoking, but will smoke occasionally. ROS: 21:05 Constitutional: Positive for poor PO intake, Negative for fever, cp 21:05 Cardiovascular: Negative for chest pain, cp 21:05 Respiratory: Negative for cough, 21:05 Abdomen/GI: Positive for nausea and vomiting, abdominal distension, 21:05 Neuro: Positive for altered mental status, gait disturbance, weakness, 21:05 Constitutional: positive generalized weakness cp 21:05 Unable to obtain ROS due to altered mental status, cp Exam: 21:10 Constitutional: The patient appears in no acute distress, alert, awake, cp non-diaphoretic, non-toxic, well developed, well nourished, 21:10 Head/Face: Normocephalic, atraumatic. cp 21:10 Eyes: Periorbital structures: appear normal, Pupils: equal, round, and reactive to light and accomodation, Extraocular movements: intact throughout, Conjunctiva: normal, no exudate, no injection, Sclera: no appreciated abnormality, Lids and lashes: appear normal, bilaterally, 21:10 ENT: External ear(s): are unremarkable, Nose: is normal, Mouth: Lips: dry, Oral mucosa: pink and intact, moist, Posterior pharynx: Airway: no evidence of obstruction, patent, 21:10 Neck: ROM/movement: is normal, is supple, without pain, no range of motions limitations, no meningismus, no nuchal rigidity, 21:10 Chest/axilla: Inspection: normal, Palpation: is normal, no crepitus, no tenderness, 21:10 Cardiovascular: Rate: normal, Rhythm: regular, 21:10 Respiratory: the patient does not display signs of respiratory distress, Respirations: cp shallow respirations, that is mild, Breath sounds: decreased breath sounds, are not appreciated, stridor, is not appreciated, wheezing: is not appreciated, 21:10 Abdomen/GI: Inspection: distension, that is moderate, in the abdomen diffusely, Bowel sounds: active, all quadrants, Palpation: soft, in all quadrants, mild abdominal tenderness, in all quadrants, rebound tenderness, is not appreciated, involuntary guarding, is not appreciated, 21:10 Back: CVA tenderness, is absent, 21:10 Skin: cellulitis, is not appreciated, no rash present. 21:10 Neuro: Orientation: to person, Mentation: slow to respond, confused, Motor: moves all fours, no focal deficits, 22:35 ECG was reviewed by the Attending Physician. cp Vital Signs: 19:51 BP 136 / 78; Pulse 97; Resp 16; Temp 98.2(O); Pulse Ox 97% on R/A; Weight 58.97 kg; nj1 Height 5 ft. 2 in. ; 21:36 BP 152 / 80; Pulse 95; Resp 9; Pulse Ox 96% on R/A; me1 22:30 BP 132 / 83; Pulse 100; Resp 7; Pulse Ox 97% on R/A; me1 23:30 BP 120 / 72; Pulse 94; Resp 7; Pulse Ox 94% on R/A; me1 06/25 00:00 BP 122 / 66; Pulse 93; Resp 8; Pulse Ox 94% on R/A; me1 06/24 19:51 Body Mass Index 23.78 (58.97 kg, 157.48 cm) nj1 MDM: 06/24 20:04 Patient medically screened. cp 06/25 02:50 ED course: CT - EXAM: CT Chest, Abdomen and Pelvis With Intravenous Contrast CLINICAL sp4 HISTORY: vomiting, abdominal distension TECHNIQUE: Axial computed tomography images of the chest, abdomen and pelvis with intravenous contrast. Sagittal and coronal reformatted images were created and reviewed. This CT exam was performed using one or more of the following dose reduction techniques: automated exposure control, adjustment of the mA and/or kV according to patient size, and/or use of iterative reconstruction technique. COMPARISON: Abdomen pelvis CT dated 06/13/2023, Chest abdomen pelvis CT dated 05/15/2023 FINDINGS: CHEST: Lungs: Scattered bilateral subsegmental atelectasis. No discrete infiltrate or mass. Pleural space: Unremarkable. No significant effusion. No pneumothorax. Heart: Unremarkable. No cardiomegaly. No significant pericardial effusion. No significant coronary artery calcifications. ABDOMEN: Liver: The liver is heterogeneous with multiple peripherally enhancing lesions. An index left medial hepatic lesion on series 201 image 35 measures 2 cm similar to the prior. An index right anterior hepatic lesion on series 201 image 40 measures 2 cm, similar to the prior. Gallbladder and bile ducts: Prior cholecystectomy. No ductal dilation. Pancreas: Unremarkable. No ductal dilation. No mass. Spleen: Unremarkable. No splenomegaly. Adrenals: Unremarkable. No mass. Kidneys and ureters: Normal renal cortical enhancement. Fullness of the renal collecting systems bilaterally, left greater than right with caliber change at the ureteropelvic junction similar to the prior. Stomach and bowel: Moderate stool. No bowel obstruction. The proximal large bowel appear somewhat thickened. Colonic diverticula without adjacent inflammatory change. PELVIS: Appendix: Normal caliber appendix. No findings to suggest acute appendicitis. Bladder: The urinary bladder is decompressed. Reproductive: There has been a hysterectomy. No adnexal cysts or masses are identified. CHEST, ABDOMEN and PELVIS: Intraperitoneal space: Large amount of ascites and omental nodularity again demonstrated. No free air. Bones/joints: Multilevel spondylosis. Innumerable mixed lytic sclerotic lesions throughout the osseous structures are again demonstrated. No acute fracture. No dislocation. Soft tissues: Bilateral breast surgical clips. There is a small fluid collection adjacent to the surgical clips at the inferior outer right breast which may represent a seroma. Right axillary surgical clips. Vasculature: Minimal atherosclerotic disease. 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 No thoracic or abdominal aortic aneurysm. The main portal, splenic and superior mesenteric veins are patent. Lymph nodes: Unremarkable. No enlarged lymph nodes. IMPRESSION: 1. Findings compatible with hepatic and osseous metastases without significant interval change compared with the most recent examination. 2. Large amount of ascites. Omental nodularity suggestive of peritoneal carcinomatosis. 3. The proximal large bowel appears somewhat thickened. This can be seen in the setting of underlying liver disease. If clinical concern for this entity, nonspecific colitis may be considered. 4. Nonspecific bilateral renal collecting system fullness with caliber change at the ureteropelvic junction. Please correlate clinically for infection. 5. Other findings as above. . 03:02 Data reviewed: vital signs, nurses notes, lab test result(s), radiologic studies, CT sp4 scan. Consideration of Admission/Observation Escalation of care including admission/observation considered. ED course: Have had detailed discussion with the patient's family about poor prognosis and multiple metastatic lesions in the liver and also significant ascites. Patient goes to Dr. Graham and he is here today to basically explore why she is feeling worse. I have explained to the patient with cancer seems to be advancing. Have offered patient transfer to another facility for higher level of care also admission here to explore hospice options. Patient's family and the patient reported they would like to go home at this time. They would prefer to establish hospice at home. They declined transfer to another facility for higher level of care. At this time patient will be discharged home with p.o. hydrocodone also p.o. ondansetron and p.o. Robaxin for symptom management. . 03:15 Data reviewed: old medical records. sp4 06/24 20:48 Order name: Blood Culture Adult (2) cp 06/24 20:48 Order name: CBC with Diff; Complete Time: 22:18 cp 06/24 23:05 Interpretation: Normal except: RBC 3.20; HGB 10.9; HCT 32.7; MCV 102.2; PLT 135; RDW cp 22.8. 06/24 20:48 Order name: CMP; Complete Time: 00:45 06/25 00:45 Interpretation: Normal except: NA 135; GLUC 119; BUN 24; CRE 1.26; GFR 46; AST 191; ALK cp 198; BILIT 1.3; TP 6.1; ALB 2.3; GLOB 3.8; A/G 0.6. 06/24 20:48 Order name: Lactate w/ 2H reflex if indic.; Complete Time: 22:18 cp 06/25 00:46 Interpretation: Reviewed. 06/24 20:48 Order name: Protime (+inr); Complete Time: 22:18 06/24 20:48 Order name: Ptt, Activated; Complete Time: 22:18 06/24 20:48 Order name: Urinalysis w/ reflexes; Complete Time: 23:01 06/24 20:48 Order name: Troponin High Sensitivity; Complete Time: 00:45 cp 06/25 00:46 Interpretation: Troponin HS 8.4; Reviewed. 06/24 21:48 Order name: Manual Differential; Complete Time: 22:18 EDMI 06/24 22:21 Order name: BNP; Complete Time: 00:30 cp 06/25 00:46 Interpretation: NT PRO-BNP 691; Reviewed. 06/24 22:21 Order name: Magnesium; Complete Time: 00:30 06/25 01:31 Order name: Lactate Sepsis 2 HR Follow-up; Complete Time: 01:41 EDMS 06/24 20:48 Order name: Chest Single View XRAY; Complete Time: 22:30 06/24 22:31 Interpretation: Report review. 06/24 20:48 Order name: CT Head Brain wo Cont; Complete Time: 22:18 cp 06/24 23:23 Order name: CT Chest, Abdomen, Pelvis - W/Contrast 06/24 20:48 Order name: EKG; Complete Time: 20:49 06/24 20:48 Order name: Accucheck; Complete Time: 22:36 06/24 20:48 Order name: Cardiac monitoring; Complete Time: 22:36 cp 06/24 20:48 Order name: Cath; Complete Time: 22:19 06/24 20:48 Order name: EKG - Nurse/Tech; Complete Time: 22:36 06/24 20:48 Order name: IV Saline Lock - Large Bore; Complete Time: 21:26 cp 06/24 20:48 Order name: Labs collected and sent; Complete Time: : cp 06/24 20:48 Order name: O2 Per Protocol; Complete Time: : cp 06/24 20:48 Order name: O2 Sat Monitoring; Complete Time: 21: cp 06/24 20:48 Order name: Vital Signs; Complete Time: 21:26 cp EC/13 22:35 Rate is 98 beats/min. Rhythm is regular. DE interval is normal. QRS interval is normal. cp QT interval is normal. T waves are Inverted in lead aVR. Interpreted by me. Reviewed by me. Administered Medications: 22:35 Drug: NS 0.9% IV 500 ml IV at 500 ml/hr continuous Route: IV; Rate: 500 ml/hr; Site: nc1 left wrist; 06/25 03:43 Drug: Methocarbamol PO 750 mg PO once Route: PO; nw1 03:44 Drug: [place] PO 10 mg-325 mg 1 tabs PO once Route: PO; nw1 03:44 Drug: Ondansetron PO 4 mg PO once Route: PO; nw1 03:48 Not Given (Patient Refused): ondansetron 4 mg IVP once; over 2 minutes nw1 Disposition: 01:02 Co-signature as Attending Physician, Rafael Pierce MD I agree with the assessment sp4 and plan of care. I reviewed the patient's care provided by the Advanced Practice Provider and agree with the diagnosis and treatment plan. Disposition Summary: 06/25/23 03:07 Discharge Ordered Notes: Location: Home sp4 Problem: new sp4 Symptoms: have improved sp4 Condition: Stable sp4 Diagnosis - Stage IV breast cancer with metastatic lesions to the liver and skull, hepatic and sp4 osseous metastatic lesions, abdominal ascites, peritoneal carcinomatosis, physical decline, acute hypoactive delirium, cancer associated pain Followup: sp4 - With: Daphney Davis MD - When: 7 - 10 days - Reason: Recheck today's complaints Discharge Instructions: - Discharge Summary Sheet sp4 - Managing Cancer Pain sp4 Forms: - Patient Portal Instructions sp4 Prescriptions: - methocarbamol 750 mg Oral tablet - take 1 tablet ORAL route every 8 hours PRN back pain and soreness; 30 tablet; sp4 Refills: 0, Product Selection Permitted - ondansetron 8 mg Oral Tablet,disintegrating - take 1 tablet ORAL route every 8 hours PRN nausea; 30 tablet; Refills: 0, sp4 Product Selection Permitted Signatures: Dispatcher [employer] EDLeo Solorzano PA PA cp Potepalov, Sergey, MD MD sp4 Denisse Golden RN RN nj1 Sabrina Rawls RN RN me1 Saritha Henning RN RN nw1 Corrections: (The following items were deleted from the chart) 06/24 20:01 20:00 PMHx: Diabetes - NIDDM; nj1 nj1 06/26 01:35 06/25 03:15 Constitutional: positive generalized weakness sp4 cp
--- NOTE | 2023-06-25 03:08 | ER ---
Nurse's Notes [facility] Name: Moriah Kiran Age: 68 yrs Sex: Female : 1955 Arrival Date: 06/24/2023 Time: 19:39 Bed 20 Private MD: Diagnosis: Stage IV breast cancer with metastatic lesions to the liver and skull, hepatic and osseous metastatic lesions, abdominal ascites, peritoneal carcinomatosis, physical decline, acute hypoactive delirium, cancer associated pain Presentation: 06/24 19:51 Chief complaint: Patient's son or daughter states: Vomiting for about a month, worsen nj1 on . Altered mental status, not eating/drinking since . "Stares up into space, does not really respond". Metastatic breast CA, dx May 2023. No treatment as of yet. Coronavirus screen: Vaccine status:. Coronavirus screen: Vaccine status: Patient reports receiving the 2nd dose of the covid vaccine. Ebola Screen: Patient denies travel to an Ebola-affected area in the 21 days before illness onset. Initial Sepsis Screen: Does the patient meet any 2 criteria? HR > 90 bpm. No. Patient's initial sepsis screen is negative. Does the patient have a suspected source of infection? No. Patient's initial sepsis screen is negative. Risk Assessment: Do you want to hurt yourself or someone else? Patient reports no desire to harm self or others. Onset of symptoms was June 22, 2023. 19:51 Method Of Arrival: Wheelchair nj 19:51 Acuity: [place] 3 nj1 Historical: - Allergies: 20:00 No Known Allergies; nj1 - PMHx: 20:00 beast cancer; Cancer; Cancer; Depression; Hyperlipidemia; Hypertension; Cancer; nj1 20:01 Diabetes mellitus; nj1 - Immunization history:: Client reports receiving the 2nd dose of the Covid vaccine. - Social history:: Smoking status: Patient reports the use of cigarette tobacco products, denies chronic smoking, but will smoke occasionally. Screenin:25 [facility] ED Fall Risk Assessment (Adult) History of falling in the last 3 months, me1 including since admission No falls in past 3 months (0 pts) Confusion or Disorientation No (0 pts) Intoxicated or Sedated No (0 pts) Impaired Gait Yes (1 pt) Mobility Assist Device Used Yes (1 pt) Altered Elimination Yes (1 pt) Score/Fall Risk Level 3 or more points = High Risk Maintained a safe environment, Hourly rounding (assess needs \\T\\ fall precautionary measures) done, Used ambulatory aids as needed (educated on \\T\\ assisted with). Abuse screen: Denies threats or abuse. Nutritional screening: No deficits noted. Tuberculosis screening: No symptoms or risk factors identified. Assessment: 22:25 General: Appears uncomfortable, ill, well groomed, well developed, well nourished, me1 Behavior is cooperative, appropriate for age, flat, listless, Reports feeling ill for > 3 days, fatigue for >3 days, Vomiting for about a month, worsen on . Altered mental status, not eating/drinking since . "Stares up into space, does not really respond". Metastatic breast CA, dx May 2023. No treatment as of yet. Pain: Denies pain. Neuro: Level of Consciousness is awake, alert, lethargic, listless, Oriented to person, place, time, situation, Appropriate for age. Cardiovascular: Capillary refill < 3 seconds Patient's skin is warm and dry. Respiratory: Airway is patent Respiratory effort is even, unlabored, Respiratory pattern is regular, symmetrical. GI: Reports nausea. : Reports per daughter patient had not voided today. Musculoskeletal: generalized weakness. 06/25 03:45 Reassessment: Family removed all monitoring from patient prior to getting discharge nw1 instructions. Vital Signs: 06/24 19:51 BP 136 / 78; Pulse 97; Resp 16; Temp 98.2(O); Pulse Ox 97% on R/A; Weight 58.97 kg; id1 Height 5 ft. 2 in. ; 21:36 BP 152 / 80; Pulse 95; Resp 9; Pulse Ox 96% on R/A; me1 22:30 BP 132 / 83; Pulse 100; Resp 7; Pulse Ox 97% on R/A; me1 23:30 BP 120 / 72; Pulse 94; Resp 7; Pulse Ox 94% on R/A; me1 06/25 00:00 BP 122 / 66; Pulse 93; Resp 8; Pulse Ox 94% on R/A; me1 06/24 19:51 Body Mass Index 23.78 (58.97 kg, 157.48 cm) [facility] ED Course: 06/24 19:48 Patient arrived in ED. gm2 19:56 Leo Khan PA is PHCP. cp 19:56 Rafael Pierce MD is Attending Physician. cp 20:00 Triage completed. nj1 20:01 Arm band placed on right wrist. nj1 20:34 Sabrina Rawls, ELVIRA is Primary Nurse. me1 21:26 Inserted saline lock: 20 gauge in left forearm, using aseptic technique. me1 21:26 Troponin High Sensitivity Sent. me1 21:26 Blood Culture Adult (2) Sent. me1 21:26 CBC with Diff Sent. me1 21:26 CMP Sent. me1 21:27 Lactate w/ 2H reflex if indic. Sent. me1 21:27 Protime (+inr) Sent. me1 21:27 Ptt, Activated Sent. me1 21:40 CT Head Brain wo Cont In Process Unspecified. EDMS 22:00 Chest Single View XRAY In Process Unspecified. EDMS 22:19 Urinalysis w/ reflexes Sent. me1 22:19 Blood Culture Adult (2) Sent. me1 22:25 Patient has correct armband on for positive identification. Placed in gown. Bed in low me1 position. Call light in reach. Side rails up X2. Provided Education on: POC. Verbalized understanding. . 22:25 No provider procedures requiring assistance completed. me1 06/25 01:24 CT Chest, Abdomen, Pelvis - W/Contrast In Process Unspecified. EDMS 03:06 Daphney Davis MD is Referral Physician. sp4 03:44 IV discontinued, intact, bleeding controlled, No redness/swelling at site. Pressure nw1 dressing applied. Administered Medications: 06/24 22:35 Drug: NS 0.9% IV 500 ml IV at 500 ml/hr continuous Route: IV; Rate: 500 ml/hr; Site: me1 left wrist; 06/25 03:43 Drug: Methocarbamol PO 750 mg PO once Route: PO; nw1 03:44 Drug: [place] PO 10 mg-325 mg 1 tabs PO once Route: PO; nw1 03:44 Drug: Ondansetron PO 4 mg PO once Route: PO; nw1 03:48 Not Given (Patient Refused): ondansetron 4 mg IVP once; over 2 minutes nw1 Medication: 06/24 22:25 VIS not applicable for this client. ms1 Outcome: 06/25 03:07 Discharge ordered by . sp4 03:44 Discharged to home via wheelchair, with family, nw1 03:44 Condition: stable 03:44 Discharge instructions given to patient, family, Instructed on discharge instructions, follow up and referral plans. Demonstrated understanding of instructions, follow-up care, medications, Prescriptions given X 3, 04:01 Patient left the ED. la4 Signatures: Dispatcher [employer] EDMS Leo Khan PA PA cp Potepalov, Sergey, MD MD sp4 Denisse Golden RN RN nj1 Sabrina Rawls RN ELVIRA me1 Shante Burnett 2 Ramon Zamora RN RN la4 Saritha Henning RN RN nw1 Corrections: (The following items were deleted from the chart) 06/24 20:01 19:51 BP 136 / 78; Pulse 97bpm; Resp 16bpm; Pulse Ox 97% RA; 58.97 kg; Height 5 ft. 2 id1 in.; BMI: 23.7; [facility] 20:00 PMHx: Diabetes - NIDDM; id1 [facility] 06/25 00:31 06/24 19:51 Chief complaint: Patient's son or daughter states: Vomiting for about a me1 month, worsen on . Altered mental status, not eating/drinking since . "Stares up into space, does not really respond". Metastatic breast CA, dx May 2023. No treatment as of yet. [facility] 06/25 00:35 00:31 General: Appears uncomfortable, ill, well groomed, well developed, well me1 nourished, Behavior is cooperative, appropriate for age, flat, listless, Reports feeling ill for > 3 days, fatigue for >3 days, Vomiting for about a month, worsen on . Altered mental status, not eating/drinking since . "Stares up into space, does not really respond". Metastatic breast CA, dx May 2023. No treatment as of yet. ms1 :35 00:31 Pain: Denies pain. ms1 me1 00:35 00:31 Neuro: Level of Consciousness is awake, alert, lethargic, listless, Oriented to me1 person, place, time, situation, Appropriate for age me1 00:31 Cardiovascular: Capillary refill < 3 seconds Patient's skin is warm and dry. me1 me1 00:31 Respiratory: Airway is patent Respiratory effort is even, unlabored, Respiratory me1 pattern is regular, symmetrical, me1 : GI: Reports nausea, me1 me1 00: : Reports per daughter patient had not voided today. me1 me1 00: Musculoskeletal: generalized weakness. me1 me1
[2023-06-25 05:49] VITALS: TEMP 98.2; O2SAT 94
[2023-06-25 06:05] VITALS: BP 122/66
--- NOTE | 2023-06-26 10:26 | RAD REPORT ---
EXAM DESCRIPTION: CT - Chest Abdomen Pelvis W Cont - 06/25/2023 6:[address] Chest, Abdomen and Pelvis With Intravenous Contrast CLINICAL HISTORY: Vomiting, abdominal distension TECHNIQUE: Axial computed tomography images of the chest, abdomen and pelvis with intravenous contra st. Sagittal and coronal reformatted images were created and reviewed. This CT exam was performed using one or more of the following dose reduction techniques: automated exposure control, adjustme nt of the mA and/or kV according to patient size, and/or use of iterative reconstruction technique. COMPARISON: Abdomen pelvis CT dated 06/13/2023, Chest abdomen pelvis CT dated 05/15/2023 FINDINGS: CHEST: Lungs: Scattered bilateral subsegmental atelectasis. No discrete infiltrate or mass. Pleural space: Unremarkable. No significant effusion. No pneumothorax. Heart: Unremarkable. No cardiomegaly. No significant pericardial effusion. No significant cor onary artery calcifications. ABDOMEN: Liver: The liver is heterogeneous with multiple peripherally enhancing lesions. An index left media l hepatic lesion on series 201 image 35 measures 2 cm similar to the prior. An index right anterior h epatic lesion on series 201 image 40 measures 2 cm, similar to the prior. Gallbladder and bile ducts: Prior cholecystectomy. No ductal dilation. Pancreas: Unremarkable. No ductal dilation. No mass. Spleen: Unremarkable. No splenomegaly. Adrenals: Unremarkable. No mass. Kidneys and ureters: Normal renal cortical enhancement. Fullness of the renal collecting systems bi laterally, left greater than right with caliber change at the ureteropelvic junction similar to the p rior. Stomach and bowel: Moderate stool. No bowel obstruction. The proximal large bowel appear somewhat t hickened. Colonic diverticula without adjacent inflammatory change. PELVIS: Appendix: Normal caliber appendix. No findings to suggest acute appendicitis. Bladder: The urinary bladder is decompressed. Reproductive: There has been a hysterectomy. No adnexal cysts or masses are identified. CHEST, ABDOMEN and PELVIS: Intraperitoneal space: Large amount of ascites and omental nodularity again demonstrated. No free air. Bones/joints: Multilevel spondylosis. Innumerable mixed lytic sclerotic lesions throughout the osse ous structures are again demonstrated. No acute fracture. No dislocation. Soft tissues: Bilateral breast surgical clips. There is a small fluid collection adjacent to the [place] rgical clips at the inferior outer right breast which may represent a seroma. Right axillary surgic al clips. Vasculature: Minimal atherosclerotic disease. 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 No thoracic or abdom inal aortic aneurysm. The main portal, splenic and superior mesenteric veins are patent. Lymph nodes: Unremarkable. No enlarged lymph nodes. IMPRESSION: 1. Findings compatible with hepatic and osseous metastases without significant interva l change compared with the most recent examination. 2. Large amount of ascites. Omental nodularity suggestive of peritoneal carcinomatosis. 3. The proximal large bowel appears somewhat thickened. This can be seen in the setting of underlyi ng liver disease. If clinical concern for this entity, nonspecific colitis may be considered. 4. Nonspecific bilateral renal collecting system fullness with caliber change at the ureteropelvic junction. Please correlate clinically for infection. 5. Other findings as above. Electronically signed by: Evert Israel MD 06/25/2023 02:03 AM MUSICAL ENGINEER Due to temporary technical issues with the PACS/Fluency reporting system, reports are being signed by the in house radiologists without review as a courtesy to insure prompt reporting. The interpreting radiologist is fully responsible for the content of the report.
--- NOTE | 2023-06-26 17:01 | EKG ---
Test Date: 2023-06-24 Test Time: 22:29:33 Game Designer: MEASUREMENT RESULTS: Intervals: Rate: 98 AK: 134 QRSD: 90 QT: 332 QTc: 423 [place]: P: 72 AK: 134 QRS: -16 T: 64 INTERPRETIVE STATEMENTS: Sinus rhythm with premature supraventricular complexes and premature ventricular complexes or fusion complexes Possible Anterolateral infarct, age undetermined Abnormal ECG Compared to ECG 06/13/2023 17:32:37 Atrial premature complex(es) now present Fusion complex(es) now present Ventricular premature complex(es) now present Sinus tachycardia no longer present Myocardial infarct finding still present Electronically Signed On 06-26-23 16:56:45 POWER PLANT SUPERINTENDENT by Sergo Gomez
== END ==
LOC: ER 19:39
DX: F05 Delirium due to known physiological condition (principal); G89.3 Neoplasm related pain (acute) (chronic); R18.8 Other ascites; C79.51 Secondary malignant neoplasm of bone; C78.7 Secondary malignant neoplasm of liver and intrahepatic bile duct; C50.919 Malignant neoplasm of unspecified site of unspecified female breast; C48.2 Malignant neoplasm of peritoneum, unspecified; E11.9 Type 2 diabetes mellitus without complications; I10 Essential (primary) hypertension; F17.210 Nicotine dependence, cigarettes, uncomplicated
CPT/HCPCS: 93005; 87040 ×2; 85025; 81001; 36415; 83735; 85610; 83605; 85730; 84484; 80053; 83880; 70450; 71260; 74177; 71045; 99284; Q9967; J7040